=== PATIENT | female | born 1945 | race Caucasian/White ===

== ENCOUNTER 2020-05-13 07:57 | Outpatient (REF) | payer MEDICARE, OTHER, SELFPAY ==
[2020-05-13 11:49] LABS: Anion Gap 15 (12-20); Blood Urea Nitrogen 18 mg/dL (9-16); Calcium 8.8 mg/dL (8.4-10.2); Carbon Dioxide 28 mmol/L (22-29); Chloride 105 mmol/L (96-108); Estimated Glomerular Filt Rate 56; Glucose Random 113 mg/dL (60-115); Sodium 144 mmol/L (135-145)
== END 2020-05-13 07:58 | disposition home or self-care (01) ==
LOC: HO.HMGCLDS 07:57
PROVIDERS: PCP Internal Medicine; Visit Provider Internal Medicine
DX: I12.9 Hypertensive chronic kidney disease with stage 1 through stage 4 chronic kidney disease, or unspecified chronic kidney disease (principal); N18.9 Chronic kidney disease, unspecified
CPT/HCPCS: 80048

== ENCOUNTER 2020-06-16 09:34 | Outpatient (REF) | payer MEDICARE, OTHER, SELFPAY ==
[2020-06-16 11:47] LABS: Anion Gap 13 (12-20); Blood Urea Nitrogen 22 mg/dL (9-16); Calcium 9.1 mg/dL (8.4-10.2); Carbon Dioxide 30 mmol/L (22-29); Chloride 105 mmol/L (96-108); Estimated Glomerular Filt Rate 49; Glucose Random 150 mg/dL (60-115); Potassium 3.7 mmol/l (3.3-5.1); Sodium 144 mmol/L (135-145)
== END 2020-06-16 09:35 | disposition home or self-care (01) ==
LOC: HO.HMGCLDS 09:34
PROVIDERS: PCP Internal Medicine; Visit Provider Internal Medicine
DX: I10 Essential (primary) hypertension (principal)
CPT/HCPCS: 80048

== ENCOUNTER 2020-08-27 11:10 | Outpatient (REF) | payer MEDICARE, OTHER, SELFPAY ==
[2020-08-27 13:42] LABS: MANUAL DIFF FLAG NO
[2020-08-27 13:51] LABS: Basophils Absolute Auto 0.1 X10*3/uL (0.0-0.2); Eosinophils Absolute Auto 0.4 X10*3/uL (0.0-0.4); Eosinophils Percent Auto 4.5 % (0-4); Hematocrit 41.7 % (37-47); Hemoglobin 13.9 g/dl (12.0-16.0); Imm Gran Abs Auto 0.03 X10*3/uL (0.00-0.03); Imm Gran Pct Auto 0.4 % (0.0-0.4); Lymphocytes Absolute Auto 2.3 X10*3/uL (1.2-4.9); Mean Corpuscular HGB Conc 33.3 g/dl (31.0-35.0); Mean Corpuscular Hemoglobin 29.5 pg (27.0-33.0); Mean Corpuscular Volume 88.5 fL (80-98); Mean Platelet Volume 10.6 fL (9.4-12.3); Monocytes Absolute Auto 0.6 X10*3/uL (0.1-1.2); Monocytes Percent Auto 7.6 % (2-11); Neutrophils Absolute Auto 4.6 X10*3/uL (2.0-8.3); Neutrophils Percent Auto 57.5 % (45-73); Platelet Count 226 X10*3/uL (160-400); Red Blood Count 4.71 X10*6/uL (4.20-5.50); Red Cell Distribution Width 13.3 % (11.0-16.0)
[2020-08-27 13:58] LABS: Estimated Average Glucose 131 mg/dL; Hemoglobin A1c % 6.2 %
[2020-08-27 14:25] LABS: Alanine Aminotransferase 26 U/L (0-31); Albumin Level 4.3 g/dL (3.5-5.0); Alkaline Phosphatase 111 U/L (39-117); Anion Gap 15 (12-20); Aspartate Amino Transferase 23 U/L (5-31); Bilirubin Total 1.1 mg/dL (0.0-1.0); Blood Urea Nitrogen 15 mg/dL (9-16); Calcium 9.3 mg/dL (8.4-10.2); Carbon Dioxide 28 mmol/L (22-29); Chloride 104 mmol/L (96-108); Estimated Glomerular Filt Rate 48; Glucose Random 150 mg/dL (60-115); Potassium 3.1 mmol/L (3.3-5.1); Sodium 144 mmol/L (135-145); Total Protein 6.6 g/dL (6.5-8.0)
[2020-08-27 14:42] LABS: Creatinine Urine 33.74 mg/dL; Microalbum/Creatinine Ratio Ur 44.4 ug/mg cr
== END 2020-08-27 11:11 | disposition home or self-care (01) ==
LOC: HO.HMGCLDS 11:10
PROVIDERS: PCP Internal Medicine; Visit Provider Internal Medicine
DX: I12.9 Hypertensive chronic kidney disease with stage 1 through stage 4 chronic kidney disease, or unspecified chronic kidney disease (principal); N18.9 Chronic kidney disease, unspecified; R73.03 Prediabetes; E78.00 Pure hypercholesterolemia, unspecified
CPT/HCPCS: 36415; 80053; 82043; 83036; 85025

== ENCOUNTER 2020-09-27 13:03 | Outpatient (REF) | payer MEDICARE, OTHER, SELFPAY ==
[2020-09-27 15:00] LABS: Anion Gap 14 (12-20); Blood Urea Nitrogen 24 mg/dL (9-16); Calcium 9.3 mg/dL (8.4-10.2); Carbon Dioxide 26 mmol/L (22-29); Chloride 107 mmol/L (96-108); Estimated Glomerular Filt Rate 45; Glucose Random 128 mg/dL (60-115); Potassium 3.9 mmol/L (3.3-5.1); Sodium 143 mmol/L (135-145)
== END 2020-09-27 13:04 | disposition home or self-care (01) ==
LOC: HO.HMGCLDS 13:03
PROVIDERS: PCP Internal Medicine; Visit Provider Internal Medicine
DX: I12.9 Hypertensive chronic kidney disease with stage 1 through stage 4 chronic kidney disease, or unspecified chronic kidney disease (principal); N18.9 Chronic kidney disease, unspecified; E87.6 Hypokalemia
CPT/HCPCS: 36415; 80048

== ENCOUNTER 2021-03-17 07:20 | Outpatient (REF) | payer MEDICARE, OTHER, SELFPAY ==
--- NOTE | ~2021-03-17 | MM_ITS ---
EXAMINATION: BONE DENSITOMETRY CLINICAL INDICATION: Menopause. COMPARISON: Previous BD dated 03/25/2013 and baseline BD dated 08/28/2005. TECHNIQUE: Using a [employer] DXA System (software version: 13.1) manufactured by [employer], dual-energy x-ray absorptiometry was performed of the lumbar spine and left hip. The images are of good technical quality. Summary results are attached. FINDINGS: AP SPINE L1-L4: Current: BMD 1.019 g/cm2, Z-score -0.7, T-score -1.3, osteopenia, 12.3% increase from previous, 25.8% increase from baseline (<5% change is not significant). Prior: BMD 0.907 g/cm2. Baseline: BMD 0.810 g/cm2. LEFT FEMUR, NECK: Current: BMD 0.727 g/cm2, Z-score -1.0, T-score -2.2, osteopenia. Prior: BMD 0.796 g/cm2. Baseline: BMD 0.880 g/cm2. LEFT FEMUR, TOTAL: Current: BMD 0.787 g/cm2, Z-score -0.8, T-score -1.7, osteopenia, 7.7% decrease from previous, 13.0% decrease from baseline (<5% change is not significant). Prior: BMD 0.853 g/cm2. Baseline: BMD 0.905 g/cm2. IDENTIFIED RISK FACTORS: Osteoporosis, height loss, menopause. HISTORY OF FRACTURE: None listed. MEDICATIONS: Vitamin D. MM/XR DEXA axial skeleton IMPRESSION: 1. DIAGNOSIS: Osteopenia based on the lowest T-score value of -2.2 in the femoral neck applying World Health Organization criteria. 2. 10-YEAR FRACTURE RISK PREDICTION, FRAX: Major osteoporotic fracture (clinical spine, forearm, hip or shoulder) 13.5%. Hip fracture 3.7%. 3. Treatment Recommendations: NOF guidelines recommend consideration for treatment in postmenopausal women and men age 50 and older presenting with the following: -A hip or vertebral (clinical or morphometric) fracture. -T-score less than or equal to -2.5 at the femoral neck or spine after appropriate evaluation to exclude secondary causes. -Low bone mass at the hip or spine and a 10-year fracture probability by FRAX of greater than or equal to 3% for hip fracture or greater than or equal to 20% for major osteoporotic fracture based on the [place] adapted WHO algorithm. 4. Other Recommendations: All treatment decisions require clinical judgment and consideration of individual patient factors, including patient preferences, comorbidities, previous drug use, risk factors not captured in the FRAX model (e.g. frailty, falls, vitamin D deficiency, increased bone turnover, interval significant decline in bone density) and possible under or overestimation of fracture risk by FRAX. Additional medical evaluation for secondary cause of low bone mineral density may be appropriate. FUTURE SCAN RECOMMENDATION: People with diagnosed cases of osteoporosis or at high risk for fracture should have regular bone mineral density tests. For patients eligible for Medicare, routine testing is allowed once every 2 years. The testing frequency can be increased to one year for patients who have rapidly progressing disease, those who are receiving or discontinuing medical therapy to restore bone mass, or have additional risk factors.
--- NOTE | ~2021-03-17 | MM_ITS ---
EXAMINATION: MM SCREENING DIGITAL BREAST TOMOSYNTHESIS, BILATERAL CLINICAL INFORMATION: Left lumpectomy for breast cancer. Also history right LCIS. Due for yearly. COMPARISON: Mammography: 10/23/2013 TECHNIQUE: Digital breast tomosynthesis is performed in both the craniocaudal and mediolateral oblique views along with computer-aided detection (CAD). Synthesized 2D images are generated from the tomosynthesis. Additional exaggerated left CC view is provided. FINDINGS: The breasts are heterogeneously dense, which may obscure small masses (ACR BI-RADS breast composition Category c). Breast tissue composition borders on average fibroglandular. There are post therapy changes on the left with mild reduced breast size are in. There are scattered bilateral benign round and coarse and dermal calcifications. There is no significant mass or nonsurgical architectural changes. The axilla are unremarkable. MM/MM tomosynthesis screening BI IMPRESSION: No mammographic evidence of malignancy. Post therapy changes left breast. ASSESSMENT: BI-RADS 2: Benign RECOMMENDATION: Routine annual mammography screening. This patient's information was entered into a reminder system with a target due date for their next mammogram.
== END 2021-03-17 07:21 | disposition home or self-care (01) ==
LOC: HO.MAMMO 07:20
PROVIDERS: PCP Internal Medicine; Visit Provider Internal Medicine
DX: Z12.31 Encounter for screening mammogram for malignant neoplasm of breast (principal); Z13.820 Encounter for screening for osteoporosis; M85.80 Other specified disorders of bone density and structure, unspecified site; Z78.0 Asymptomatic menopausal state; Z79.899 Other long term (current) drug therapy
CPT/HCPCS: 77063; 77067; 77080

== ENCOUNTER 2021-04-15 06:55 | Outpatient (REF) | payer MEDICARE, OTHER, SELFPAY ==
[2021-04-15 12:27] LABS: MANUAL DIFF FLAG NO
[2021-04-15 12:34] LABS: Basophils Absolute Auto 0.1 X10*3/uL (0.0-0.2); Basophils Percent Auto 1.1 % (0-2); Eosinophils Absolute Auto 0.4 X10*3/uL (0.0-0.4); Eosinophils Percent Auto 5.5 % (0-4); Hematocrit 42.1 % (37-47); Hemoglobin 13.8 g/dl (12.0-16.0); Imm Gran Abs Auto 0.02 X10*3/uL (0.00-0.03); Imm Gran Pct Auto 0.2 % (0.0-0.4); Lymphocytes Absolute Auto 1.7 X10*3/uL (1.2-4.9); Lymphocytes Percent Auto 21.1 % (20-40); Mean Corpuscular HGB Conc 32.8 g/dl (31.0-35.0); Mean Corpuscular Volume 88.4 fL (80-98); Mean Platelet Volume 10.3 fL (9.4-12.3); Monocytes Absolute Auto 0.5 X10*3/uL (0.1-1.2); Monocytes Percent Auto 6.2 % (2-11); Neutrophils Absolute Auto 5.3 X10*3/uL (2.0-8.3); Neutrophils Percent Auto 65.9 % (45-73); Platelet Count 225 X10*3/uL (160-400); Red Blood Count 4.76 X10*6/uL (4.20-5.50); Red Cell Distribution Width 13.2 % (11.0-16.0); White Blood Count 8.1 X10*3/uL (4.8-10.8)
[2021-04-15 12:57] LABS: Alanine Aminotransferase 17 U/L (0-31); Alkaline Phosphatase 117 U/L (39-117); Anion Gap 13 (12-20); Aspartate Amino Transferase 15 U/L (5-31); Blood Urea Nitrogen 15 mg/dL (9-16); Calcium 9.3 mg/dL (8.4-10.2); Carbon Dioxide 26 mmol/L (22-29); Chloride 109 mmol/L (96-108); Cholesterol 167 mg/dL; Estimated Glomerular Filt Rate 55; Glucose Fasting 127 mg/dL (60-99); HDL Cholesterol 41 mg/dL; LDL Cholesterol Calculated 92 mg/dl; Sodium 144 mmol/L (135-145); Total Protein 6.4 g/dL (6.5-8.0); Triglycerides 172 mg/dL
[2021-04-15 13:23] LABS: Vitamin D 25-OH Total 35.7 ng/mL (>30)
[2021-04-15 13:25] LABS: Microalbum/Creatinine Ratio Ur 17.1 ug/mg cr
[2021-04-15 14:06] LABS: Estimated Average Glucose 126 mg/dL; Hemoglobin A1C 151.3327 umol/L
== END 2021-04-15 06:56 | disposition home or self-care (01) ==
LOC: HO.HMGCLDS 06:55
PROVIDERS: PCP Internal Medicine; Visit Provider Internal Medicine
DX: I12.9 Hypertensive chronic kidney disease with stage 1 through stage 4 chronic kidney disease, or unspecified chronic kidney disease (principal); N18.9 Chronic kidney disease, unspecified; R73.03 Prediabetes; E78.00 Pure hypercholesterolemia, unspecified; E55.9 Vitamin D deficiency, unspecified
CPT/HCPCS: 36415; 80053; 80061; 82043; 82306; 83036; 85025

== ENCOUNTER 2021-11-01 08:57 | Outpatient (REF) | payer MEDICARE, OTHER, SELFPAY ==
[2021-11-01 11:21] LABS: MANUAL DIFF FLAG NO
[2021-11-01 11:51] LABS: Estimated Average Glucose 134 mg/dL; Hemoglobin A1c % 6.3 %
[2021-11-01 11:53] LABS: Basophils Absolute Auto 0.1 X10*3/uL (0.0-0.2); Eosinophils Absolute Auto 0.4 X10*3/uL (0.0-0.4); Eosinophils Percent Auto 5.6 % (0-4); Hematocrit 42.7 % (37.0-47.0); Imm Gran Abs Auto 0.02 X10*3/uL (0.00-0.03); Imm Gran Pct Auto 0.3 % (0.0-0.4); Lymphocytes Absolute Auto 1.9 X10*3/uL (1.2-4.9); Lymphocytes Percent Auto 25.7 % (20-40); Mean Corpuscular HGB Conc 32.8 g/dl (31.0-35.0); Mean Corpuscular Hemoglobin 29.1 pg (27.0-33.0); Mean Corpuscular Volume 88.8 fL (80.0-98.0); Mean Platelet Volume 10.2 fL (9.4-12.3); Monocytes Absolute Auto 0.6 X10*3/uL (0.1-1.2); Neutrophils Absolute Auto 4.4 x10*3/uL (2.0-8.3); Neutrophils Percent Auto 59.4 % (45-73); Platelet Count 226 X10*3/uL (160-400); Red Blood Count 4.81 X10*6/uL (4.20-5.50); Red Cell Distribution Width 13.2 % (11.0-16.0); White Blood Count 7.4 X10*3/uL (4.8-10.8)
[2021-11-01 12:09] LABS: Anion Gap 14 (12-20); Blood Urea Nitrogen 17 mg/dL (9-16); Calcium 9.6 mg/dL (8.4-10.2); Carbon Dioxide 27 mmol/L (22-29); Chloride 106 mmol/L (96-108); Estimated Glomerular Filt Rate 57; Glucose Random 109 mg/dL (60-115); Potassium 4.1 mmol/L (3.3-5.1); Sodium 143 mmol/L (135-145)
== END 2021-11-01 08:58 | disposition home or self-care (01) ==
LOC: HO.HMGCLDS 08:57
PROVIDERS: Visit Provider Internal Medicine
DX: I12.9 Hypertensive chronic kidney disease with stage 1 through stage 4 chronic kidney disease, or unspecified chronic kidney disease (principal); N18.9 Chronic kidney disease, unspecified; R73.03 Prediabetes
CPT/HCPCS: 36415; 80048; 83036; 85025

== ENCOUNTER 2022-02-22 06:26 | Outpatient (REF) | payer MEDICARE, OTHER, SELFPAY ==
[2022-02-22 11:15] LABS: MANUAL DIFF FLAG NO
[2022-02-22 11:28] LABS: Basophils Absolute Auto 0.1 X10*3/uL (0.0-0.2); Basophils Percent Auto 0.9 % (0-2); Eosinophils Absolute Auto 0.2 X10*3/uL (0.0-0.4); Eosinophils Percent Auto 2.8 % (0-4); Hematocrit 42.8 % (37.0-47.0); Hemoglobin 14.1 g/dl (12.0-16.0); Imm Gran Abs Auto 0.03 X10*3/uL (0.00-0.03); Imm Gran Pct Auto 0.4 % (0.0-0.4); Lymphocytes Absolute Auto 1.6 X10*3/uL (1.2-4.9); Lymphocytes Percent Auto 20.5 % (20-40); Mean Corpuscular HGB Conc 32.9 g/dl (31.0-35.0); Mean Corpuscular Hemoglobin 29.6 pg (27.0-33.0); Mean Corpuscular Volume 89.9 fL (80.0-98.0); Mean Platelet Volume 9.8 fL (9.4-12.3); Monocytes Absolute Auto 0.5 X10*3/uL (0.1-1.2); Monocytes Percent Auto 6.5 % (2-11); Neutrophils Absolute Auto 5.4 x10*3/uL (2.0-8.3); Neutrophils Percent Auto 68.9 % (45-73); Platelet Count 188 X10*3/uL (160-400); Red Blood Count 4.76 X10*6/uL (4.20-5.50); Red Cell Distribution Width 13.9 % (11.0-16.0); White Blood Count 7.8 X10*3/uL (4.8-10.8)
[2022-02-22 11:41] LABS: Alanine Aminotransferase 20 U/L (0-31); Albumin Level 3.8 g/dL (3.5-5.0); Alkaline Phosphatase 86 U/L (39-117); Anion Gap 14 (12-20); Aspartate Amino Transferase 14 U/L (5-31); Bilirubin Total 1.3 mg/dL (0.0-1.0); Blood Urea Nitrogen 22 mg/dL (9-16); Carbon Dioxide 26 mmol/L (22-29); Chloride 108 mmol/L (96-108); Cholesterol 189 mg/dL; Estimated Glomerular Filt Rate 53; Glucose Fasting 114 mg/dL (60-99); HDL Cholesterol 52 mg/dL; LDL Cholesterol Calculated 113 mg/dl; Potassium 3.9 mmol/L (3.3-5.1); Sodium 144 mmol/L (135-145); Triglycerides 123 mg/dL
[2022-02-22 11:44] LABS: Estimated Average Glucose 134 mg/dL; Hemoglobin A1c % 6.3 %
[2022-02-22 12:17] LABS: Creatinine Urine 131.89 mg/dL; Microalbum/Creatinine Ratio Ur 11.3 ug/mg cr
== END 2022-02-22 06:27 | disposition home or self-care (01) ==
LOC: HO.HMGCLDS 06:26
PROVIDERS: PCP Internal Medicine; Visit Provider Internal Medicine
DX: I12.9 Hypertensive chronic kidney disease with stage 1 through stage 4 chronic kidney disease, or unspecified chronic kidney disease (principal); N18.9 Chronic kidney disease, unspecified; E78.00 Pure hypercholesterolemia, unspecified; R73.03 Prediabetes
CPT/HCPCS: 36415; 80053; 80061; 82043; 83036; 85025

== ENCOUNTER 2022-03-30 07:13 | Outpatient (REF) | payer MEDICARE, OTHER, SELFPAY ==
--- NOTE | ~2022-03-30 | MM_ITS ---
EXAMINATION: MM SCREENING DIGITAL BREAST TOMOSYNTHESIS, BILATERAL CLINICAL INFORMATION: Due for yearly. Screening. Asymptomatic. Left breast lobular cancer status post lumpectomy, 2010. Also prior right lumpectomy, LCIS. COMPARISON: Mammography: 04/04/2021, 10/23/2013, 10/18/2012 TECHNIQUE: Digital breast tomosynthesis is performed in both the craniocaudal and mediolateral oblique views along with computer-aided detection (CAD). Synthesized 2D images are generated from the tomosynthesis. FINDINGS: The breasts are heterogeneously dense, which may obscure small masses (ACR BI-RADS breast composition Category c). There are no significant masses, abnormal calcifications, or other abnormalities. Breast tissue composition borders on average fibroglandular. There is no developing density or interval mass or architectural abnormality. Again, there are postsurgical changes on the left with mild reduced breast size and stable scarring. Scattered bilateral benign round and rim calcifications are present. No significant changes. MM/MM tomosynthesis screening BI IMPRESSION: No mammographic evidence of malignancy. ASSESSMENT: BI-RADS 2: Benign RECOMMENDATION: Routine annual mammography screening. This patient's information was entered into a reminder system with a target due date for their next mammogram.
== END 2022-03-30 07:14 | disposition home or self-care (01) ==
LOC: HO.MAMMO 07:13
PROVIDERS: PCP Internal Medicine; Visit Provider Internal Medicine
DX: Z12.31 Encounter for screening mammogram for malignant neoplasm of breast (principal)
CPT/HCPCS: 77063; 77067

== ENCOUNTER 2022-08-29 09:20 | Outpatient (REF) | payer MEDICARE, OTHER, SELFPAY ==
[2022-08-29 11:54] LABS: Anion Gap 13 (12-20); Blood Urea Nitrogen 17 mg/dL (9-16); Calcium 9.6 mg/dL (8.4-10.2); Carbon Dioxide 25 mmol/L (22-29); Chloride 108 mmol/L (96-108); Estimated Glomerular Filt Rate 50; Glucose Random 111 mg/dL (60-115); Iron 125 mcg/dL (30-160); Percent Iron Saturation 48 % (15-50); Potassium 3.4 mmol/L (3.3-5.1); Sodium 143 mmol/L (135-145); Total Iron Binding Capacity 261 mcg/dL (228-428); Unsaturated Iron Binding 136 ug/dL
[2022-08-29 12:08] LABS: Ferritin 116 ng/mL (10-250)
[2022-08-29 16:49] LABS: Estimated Average Glucose 134 mg/dL; Hemoglobin A1c % 6.3 %
== END 2022-08-29 09:21 | disposition home or self-care (01) ==
LOC: HO.HMGCLDS 09:20
PROVIDERS: PCP Internal Medicine; Visit Provider Internal Medicine
DX: R73.03 Prediabetes (principal); I10 Essential (primary) hypertension; E83.119 Hemochromatosis, unspecified
CPT/HCPCS: 36415; 80048; 82728; 83036; 83540

== ENCOUNTER 2023-03-05 08:07 | Outpatient (AMB) | payer MEDICARE, OTHER, SELFPAY ==
--- NOTE | 2023-03-05 08:10 | MHC.OFFWIV ---
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) Intake Note: pt is here for c/o cough 3x weeks Patient Tobacco Use Status: Never used Tobacco Allergies Penicillins [PENICILLINS] Allergy (Intermediate, Verified 03/05/23 08:31) RASH codeine [CODEINE] Allergy (Unknown, Verified 03/05/23 08:31) VOMITING, nausea/vomiting penicillin V Allergy (Unknown, Verified 03/05/23 08:31) rash Bactrim Allergy (Unknown, Uncoded 03/05/23 08:31) severe vomiting, chills cipro Allergy (Unknown, Uncoded 03/05/23 08:31) severe vomiting, chills tetracycline Allergy (Unknown, Uncoded 03/05/23 08:31) rash Medication List - Last Reconciled 03/05/23 by Bharathi Camarena MD diltiazem HCl 300 mg PO DAILY escitalopram oxalate 5 mg PO DAILY furosemide 40 mg PO DAILY losartan 100 mg PO DAILY potassium chloride ER 10 mEq PO DAILY pravastatin 40 mg PO DAILY 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 Patient is complaining of productive cough for the past 3 weeks. Associated with mild shortness of breath. Lives alone and able to function. No fevers or chills. Has not tested for COVID. Primary care provider put her on prednisone and she took 6 doses with no relief. [facility] Social History Patient Tobacco Use Status: Never used Tobacco Physical Exam Vital Signs: Last Vital Signs Temp 98.0 F 03/05/23 08:14 Pulse 78 03/05/23 08:14 BP 130/78 03/05/23 08:14 Pulse Ox 98 03/05/23 08:14 Oxygen Delivery Method Room Air 03/05/23 08:14 BMI result Body Mass Index 36.0 Const General: cooperative and healthy appearing Nutritional Appearance: well nourished Orientation/consciousness: patient oriented x3 Limitations: no limitations HEENT Head: Yes normal to inspection Eyes General: appearance normal, both eyes and all related structures Neck Neck: Yes normal visual inspection Chest Chest palpation & inspection: normal palpation of entire chest wall Resp Effort & Inspection: normal respiratory effort Neuro General: patient oriented x3 Assessment & Plan Assessment & Plan (1) Acute bronchitis: Code(s): J20.9 - Acute bronchitis, unspecified Plan: Chest x-ray was personally reviewed by me. Right upper lobe, possible infiltrate. Will await the official reading. Prednisone for 3 days, antibiotic and inhalers ordered. If symptoms not better to follow-up here. Orders: Orders XR chest 2V Today J18.9 - Pneumonia, unspecified organism Coding Level of Care Code Est Pt Level 4 (97168) Diagnoses Acute bronchitis J20.9
[2023-03-05 08:14] VITALS: BP 130/78; PULSE 78; TEMP 36.7; O2SAT 98; BMI 36.0
== END 2023-03-05 09:02 | disposition home or self-care (01) ==
PROVIDERS: PCP Internal Medicine; Visit Provider Internal Medicine
DX: J20.9 Acute bronchitis, unspecified (principal)
CPT/HCPCS: 99214

== ENCOUNTER 2023-03-05 08:31 | Outpatient (REF) | payer MEDICARE, OTHER, SELFPAY ==
--- NOTE | ~2023-03-05 | XR_ITS ---
EXAMINATION: XR CHEST CLINICAL INFORMATION: Pneumonia. COMPARISON: Chest radiographs dated 10/24/2010. TECHNIQUE: 2 views of the chest were obtained. FINDINGS: A focal opacity is seen medially in the right apex. Mild biapical pleural thickening and scarring is seen. The heart and mediastinal structures are unremarkable. XR/XR chest 2V IMPRESSION: Focal opacity medially in the right apex is nonspecific, but was not seen previously. While this could represent infiltrate, pulmonary nodules/malignancy cannot be excluded. Further evaluation with a chest CT scan is recommended.
[2023-03-05 15:01] LABS: Influenza A PCR NEGATIVE (Negative); Influenza B PCR NEGATIVE (Negative); Resp Syncy Virus RNA Qual PCR NEGATIVE (Negative); SARS COV2 PCR INHOUSE NEGATIVE (Negative)
== END 2023-03-05 08:32 | disposition home or self-care (01) ==
LOC: HO.HMGCX 08:31
PROVIDERS: PCP Internal Medicine; Visit Provider Internal Medicine
DX: J18.9 Pneumonia, unspecified organism (principal); R43.9 Unspecified disturbances of smell and taste; Z20.822 Contact with and (suspected) exposure to COVID-19
CPT/HCPCS: 0241U; 71046

== ENCOUNTER 2023-03-05 10:15 | Outpatient (REF) | payer MEDICARE, OTHER, SELFPAY | END 2023-03-05 10:16 | disposition home or self-care (01) | LOC: HO.LAB 10:15 | PROVIDERS: Visit Provider Internal Medicine | DX: Z13.89 Encounter for screening for other disorder (principal) ==

== ENCOUNTER 2023-04-04 07:29 | Outpatient (REF) | payer MEDICARE, OTHER, SELFPAY ==
--- NOTE | ~2023-04-04 | MM_ITS ---
EXAMINATION: MM SCREENING DIGITAL BREAST TOMOSYNTHESIS, BILATERAL CLINICAL INFORMATION: Screening. Asymptomatic. The patient has a history of prior left breast cancer which was conservatively treated. COMPARISON: Mammography: This study is compared with prior exams dating back to 2013. TECHNIQUE: Digital breast tomosynthesis is performed in both the craniocaudal and mediolateral oblique views along with computer-aided detection (CAD). Synthesized 2D images are generated from the tomosynthesis. FINDINGS: The breasts are heterogeneously dense, which may obscure small masses (ACR BI-RADS breast composition Category c). There are no significant masses, abnormal calcifications, or other abnormalities. There are postsurgical changes in the upper outer quadrant of the left breast along with benign calcifications. There are no mammographic signs of malignancy the current time. MM/MM tomosynthesis screening BI IMPRESSION: No mammographic evidence of malignancy. ASSESSMENT: BI-RADS BI-RADS 2 - Benign Findings RECOMMENDATION: Routine annual mammography screening. 1 year F/U This examination should not preclude the clinical evaluation of a suspicious palpable abnormality. This patient's information was entered into a reminder system with a target due date for their next mammogram.
== END 2023-04-04 07:30 | disposition home or self-care (01) ==
LOC: HO.MAMMO 07:29
PROVIDERS: PCP Internal Medicine; Visit Provider Internal Medicine
DX: Z12.31 Encounter for screening mammogram for malignant neoplasm of breast (principal)
CPT/HCPCS: 77063; 77067

== ENCOUNTER → 2023-04-04 07:45 | Outpatient (BNV) | payer MEDICARE, OTHER, SELFPAY | PROVIDERS: PCP Internal Medicine; Visit Provider Radiology Diagnostic Radiology | DX: Z12.31 Encounter for screening mammogram for malignant neoplasm of breast (principal) | CPT/HCPCS: 77063; 77067 ==

== ENCOUNTER 2023-06-08 09:21 | Outpatient (AMB) | payer MEDICARE, OTHER, SELFPAY ==
[2023-06-08 09:26] VITALS: BP 132/80; PULSE 80; TEMP 36.7; O2SAT 97; BMI 36.0
--- NOTE | 2023-06-08 09:26 | AM.OFFWIN_ITS ---
Intake Vital Signs 06/08/23 09:26 Height 5 ft 4 in Weight 210 lb BMI 36.0 BP 132/80 Blood Pressure Location Rt brachial Position Sitting Pulse 80 Pulse Source Pulse Oximeter Temp 98.0 F Temp Source Temporal Artery Scan Pulse Oximetry (%) 97 Oxygen Delivery Method Room Air Intake Visit Reasons: EP ?Sinus infection Intake Note: pt is here for c/o sinus infection, watery eyes, ear discomfort. denies vision change Patient Tobacco Use Status: Never used Tobacco Allergies Penicillins [PENICILLINS] Allergy (Intermediate, Verified 06/08/23 09:58) RASH codeine [CODEINE] Allergy (Unknown, Verified 06/08/23 09:58) VOMITING, nausea/vomiting penicillin V Allergy (Unknown, Verified 06/08/23 09:58) rash Bactrim Allergy (Unknown, Uncoded 06/08/23 09:58) severe vomiting, chills cipro Allergy (Unknown, Uncoded 06/08/23 09:58) severe vomiting, chills tetracycline Allergy (Unknown, Uncoded 06/08/23 09:58) rash Medication List - Last Reconciled 06/08/23 by Bharathi Camarena MD albuterol sulfate 90 mcg/actuation (Ventolin HFA) 1 inh inhalation QID PRN diltiazem HCl 300 mg PO DAILY escitalopram oxalate 5 mg PO DAILY furosemide 40 mg PO DAILY losartan 100 mg PO DAILY potassium chloride ER 10 mEq PO DAILY pravastatin 40 mg PO DAILY Do you need a note to return to daycare/school/sports/work: Yes HPI EP ?Sinus infection HPI Details 78 yr old female presents to the office for a sick visit. Reporting sx of congestion, headaches and sinus pain. In addition, patient has crusts in both eyes. Also, she never followed up for a rpt x ray after her pneumonia in February [facility] Patient Tobacco Use Status: Never used Tobacco Physical Exam Vital Signs: Last Vital Signs Temp 98.0 F 06/08/23 09:26 Pulse 80 06/08/23 09:26 BP 132/80 06/08/23 09:26 Pulse Ox 97 06/08/23 09:26 Oxygen Delivery Method Room Air 06/08/23 09:26 BMI result Body Mass Index 36.0 Const General: cooperative and healthy appearing Nutritional Appearance: well nourished Orientation/consciousness: patient oriented x3 Limitations: no limitations HEENT Head: Yes normal to inspection Eyes Other: Bulbar conjunctiva is congested. Cornea is clear. No digital tenderness General: appearance normal, both eyes and all related structures Neck Neck: Yes normal visual inspection Chest Chest palpation & inspection: normal palpation of entire chest wall Resp Effort & Inspection: normal respiratory effort Neuro General: patient oriented x3 Assessment & Plan Assessment & Plan (1) Upper respiratory tract infection: Code(s): J06.9 - Acute upper respiratory infection, unspecified Plan: Zpak and Emycin oph ointment ordered. (2) Mass of upper lobe of right lung: Code(s): R91.8 - Other nonspecific abnormal finding of lung field Plan: X rays show that the right upper lobe infiltrate is still present. Patient was again advised to follow up with her PCP for a CT scan of the chest. Orders: Orders XR chest 2V Today J18.9 - Pneumonia, unspecified organism Coding Level of Care Code Est Pt Level 4 (13653) Diagnoses Upper respiratory tract infection J06.9 Mass of upper lobe of right lung R91.8
== END 2023-06-08 10:08 | disposition home or self-care (01) ==
PROVIDERS: PCP Family Medicine; Visit Provider Internal Medicine
DX: J06.9 Acute upper respiratory infection, unspecified (principal); R91.8 Other nonspecific abnormal finding of lung field
CPT/HCPCS: 99214

== ENCOUNTER 2023-06-08 09:49 | Outpatient (REF) | payer MEDICARE, OTHER, SELFPAY ==
--- NOTE | ~2023-06-08 | XR_ITS ---
EXAMINATION: XR CHEST CLINICAL INFORMATION: Pneumonia COMPARISON: Chest x-ray on 03/05/2023 TECHNIQUE: 2 views of the chest were obtained. FINDINGS: vascularity. LUNGS: A persistent semilunar shaped asymmetric soft tissue density is seen along the medial superior right apical border measuring 3.0 cm in vertical height, 2.1 cm in width. No pneumothorax is seen. BONES: Bony skeleton is intact. XR/XR chest 2V IMPRESSION: Persistent asymmetric soft tissue density in medial superior right lung apex, not evident on earlier chest x-ray on 10/24/2010. Even though findings could represent persistent airspace disease, persistent for more than 3 months raises concern for right lung mass lesion. Further evaluation with preferably contrast-enhanced CT scan of chest is recommended.
== END 2023-06-08 09:50 | disposition home or self-care (01) ==
LOC: HO.HMGCX 09:49
PROVIDERS: PCP Family Medicine; Visit Provider Internal Medicine
DX: J18.9 Pneumonia, unspecified organism (principal)
CPT/HCPCS: 71046

== ENCOUNTER 2023-07-25 08:13 | Outpatient (REF) | payer MEDICARE, OTHER, SELFPAY ==
--- NOTE | ~2023-07-25 | CT_ITS ---
EXAMINATION: CT CHEST WITH CONTRAST CLINICAL INFORMATION: Right upper lobe lung mass. COMPARISON: Chest radiograph 06/08/2023: Persistent asymmetric soft tissue density in medial superior right lung apex, not evident on earlier chest x-ray on 10/24/2010. Even though findings could represent persistent airspace disease, persistent for more than 3 months raises concern for right lung mass lesion. Further evaluation with preferably contrast-enhanced CT scan of chest is recommended. TECHNIQUE: Multidetector volumetric CT imaging of the chest was obtained after the administration of 65 mL of Omnipaque 350 intravenous contrast without immediate adverse reactions. Axial MIP volume rendering provided. Sagittal and coronal reformatted images were obtained. This CT examination was performed using dose optimization techniques as appropriate, variously including the following: *Automated exposure control *Adjustment of mA and/or kV according to patient size (this includes techniques or standardized protocols for targeted exams where dose is matched to indication/reason for exam; i.e. extremities or head) *Use of iterative reconstruction technique DLP: 145 mGy-cm FINDINGS: [employer]: Right paratracheal fullness again noted. LUNGS: The right paratracheal fullness is secondary to vascular ectasia and tortuosity of the brachiocephalic and right subclavian artery. There is a 3 mm left upper lobe pulmonary nodule (5:65). There is a 3 mm right lower lobe pulmonary nodule (5:98). A calcified left lower lobe granuloma is seen (5:100). MEDIASTINUM: Thyroid is enlarged with multiple nodules, the largest of which measures about 1.6 cm on the right. Heart size normal. Mild coronary calcium is seen. No mediastinal or hilar lymphadenopathy. Tortuous ectatic brachiocephalic and right subclavian artery accounting for paratracheal opacity on the prior chest radiograph as described above. Marked calcific atherosclerotic change is present in the descending thoracic aorta with extensive slightly eccentric noncalcified plaque PLEURA: There is no pleural effusion. No pleural mass or thickening. AXILLA: No lymphadenopathy. UPPER ABDOMEN: Splenomegaly is suspected although the entire spleen is not included on the exam. OSSEOUS STRUCTURES: Marked degenerative changes are present in the mid thoracic spine. There is a compression fracture involving the L1 vertebral body. CT/CT chest w IV con IMPRESSION: 1. The right paratracheal fullness is secondary to vascular ectasia and tortuosity of the brachiocephalic and right subclavian artery. A pathologic lung mass is not seen. 2. Small benign-appearing pulmonary nodules as described above. No followup should be necessary. 3. Enlarged thyroid with multiple nodules. Dedicated thyroid ultrasound recommended for further evaluation. 4. L1 compression fracture. 5. Possible splenomegaly. 6. Other incidental findings as described above. According to the UPDATED 2017 Fleischner Society recommendations, the advised follow-up imaging for nodules <6mm in the upper lobes is not necessarily required in low-risk patients. In high-risk patients with a nodule in the upper lobe and/or demonstrating suspicious morphology, an optional CT followup at 12 months may be obtained. If stable at 12 months, no further followup is recommended.
[2023-07-25] MEDS: iohexoL 350 MG/ML 100 ML INFUS..BTL IV (09:22)
[2023-07-26 07:10] LABS: Creatinine POC 0.9 mg/dL (0.5-1.4); GFR POC > 60
== END 2023-07-25 08:14 | disposition home or self-care (01) ==
LOC: HO.CT 08:13
PROVIDERS: PCP Family Medicine; Visit Provider Family Medicine
DX: R93.89 Abnormal findings on diagnostic imaging of other specified body structures (principal)
CPT/HCPCS: 71260; 82565; Q9967

== ENCOUNTER 2023-09-24 13:08 | Outpatient (REF) | payer MEDICARE, OTHER, SELFPAY ==
--- NOTE | ~2023-09-24 | US_ITS ---
EXAMINATION: US THYROID CLINICAL INFORMATION: Thyroid nodule. COMPARISON: CT chest with contrast 07/25/2023. TECHNIQUE: Linear transducer palomo-scale and color Doppler examination with attention to the region of the thyroid. FINDINGS: SIZE: Measurements of the thyroid lobes and nodules are given in sagittal, anteroposterior and transverse dimensions respectively. Right Thyroid Lobe: 5.7 x 2.6 x 2.3 cm, volume 18 mL. Parenchyma: The gland echotexture is homogeneous. Thyroid vascularity is normal. Left Thyroid Lobe: 5.2 x 2.2 x 2.1 cm, volume 12.1 mL. Parenchyma: The gland echotexture is homogeneous. Thyroid vascularity is normal. Isthmus: 0.41 cm in maximum AP dimension. Estimated total number of nodules greater than or equal to 1 cm: 3. 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 Location: Right mid. Size: 1.7 x 1.9 x 1 cm, volume 1.7 mL. Nodule characteristics: Composition: Mixed cystic and solid (1). Echogenicity: Cannot be determined (1). Shape: Not taller than wide (0). Margins: Smooth (0). Echogenic Foci: None (0). ACR TI-RADS total points: 2 ACR TI-RADS category: 2 2. Location: Right anterior inferior. Size: 0.9 x 1.0 x 0.85 cm, volume 0.4 mL. Nodule characteristics: Composition: Cystic(0). ACR TI-RADS total points: 0 ACR TI-RADS category: 1 3. Location: Left mid. Size: 1.8 x 1.1 x 1.4 cm, volume 1.4 mL. Nodule characteristics: Composition: Solid (2). Echogenicity: Isoechoic (1). Shape: Not taller than wide (0). Margins: Smooth (0). Echogenic Foci: None (0). ACR TI-RADS total points: 3 ACR TI-RADS category: 3 4. Location: Left medial. Size: 0.6 x 0.7 x 0.43 cm, volume 0.1 mL. Nodule characteristics: Composition: Cystic(0). ACR TI-RADS total points: 0 ACR TI-RADS category: 1 NODES: No lymphadenopathy is seen in the tissue surrounding the thyroid gland. US/US thyroid IMPRESSION: Enlarged multinodular goiter. None of the thyroid nodules meet criteria for biopsy. A 1.8 cm TR3 nodule meets criteria for follow-up in one year. ACR TI-RADS RECOMMENDATION REFERENCE: Ultrasound-guided fine-needle aspiration, followup ultrasound, no further follow up. * TR1 (0 point) and TR2 (2 points): No FNA or follow up. * TR3 (3 points): FNA if more than or equal to 2.5 cm in maximum dimension, followup ultrasound in 1, 3 and 5 years if 1.5 to 2.4 cm in maximum dimension. * TR4 (4-6 points): FNA if more than or equal to 1.5 cm in maximum dimension, followup ultrasound in 1, 2, 3 and 5 years if 1 to 1.4 cm in maximum dimension. * TR5 (more than or equal to 7 points): FNA if more than or equal to 1 cm in maximum dimension, followup ultrasound every year for 5 years if 0.5 to 0.9 cm in maximum dimension. * TR3, TR4 or TR5 nodules that are below the size threshold for followup receive no follow up.
== END 2023-09-24 13:09 | disposition home or self-care (01) ==
LOC: HO.US 13:08
PROVIDERS: PCP Family Medicine; Visit Provider Family Medicine
DX: E04.2 Nontoxic multinodular goiter (principal)
CPT/HCPCS: 76536

== ENCOUNTER 2023-11-14 08:03 | Outpatient (AMB) | payer MEDICARE, OTHER, SELFPAY ==
[2023-11-14 08:05] VITALS: BP 122/68; PULSE 68; TEMP 36.6; O2SAT 97; BMI 36.0
--- NOTE | 2023-11-14 08:05 | AM.OFFWIN_ITS ---
Intake Vital Signs 11/14/23 08:05 Height 5 ft 4 in Weight 210 lb BMI 36.0 BP 122/68 Blood Pressure Location Rt brachial Position Sitting Pulse 68 Pulse Source Pulse Oximeter Temp 97.9 F Temp Source Oral Pulse Oximetry (%) 97 Intake Visit Reasons: EP Cough, tightness chest Intake Note: pt is here for cough, chest tightness, ongoing since sunday Patient Tobacco Use Status: Never used Tobacco Allergies Penicillins [PENICILLINS] Allergy (Intermediate, Verified 11/14/23 08:19) RASH codeine [CODEINE] Allergy (Unknown, Verified 11/14/23 08:19) VOMITING, nausea/vomiting penicillin V Allergy (Unknown, Verified 11/14/23 08:19) rash Bactrim Allergy (Unknown, Uncoded 06/08/23 09:58) severe vomiting, chills cipro Allergy (Unknown, Uncoded 06/08/23 09:58) severe vomiting, chills tetracycline Allergy (Unknown, Uncoded 06/08/23 09:58) rash Do you need a note to return to daycare/school/sports/work: No HPI EP Cough, tightness chest HPI Details This is a 78 year old female patient who presents to the [place] clinic today with HPI Comments History of Present Illness Details 78 y/o female patient who presents to [facility] in clinic with c/o cough, wheezing and SOB. Reports symptoms started last Sunday. Denies fevers, chills, nausea or vomiting. PFSH Social History Patient Tobacco Use Status: Never used Tobacco Review of Systems Const All systems reviewed & are unremarkable except as noted in HPI and below Physical Exam Vital Signs: Last Vital Signs Temp 97.9 F 11/14/23 08:05 Pulse 68 11/14/23 08:05 BP 122/68 11/14/23 08:05 Pulse Ox 97 11/14/23 08:05 BMI result Body Mass Index 36.0 Const General: comfortable and no acute distress Nutritional Appearance: overweight Orientation/consciousness: patient oriented x3 HEENT Head: Yes normocephalic Ears: external ears normal and TM's normal bilaterally General nose exam: Normal nasal mucous membranes and turbinates present and Nasal discharge present Face and sinus: Yes sinuses nontender Mouth: moist mucous membranes Throat: Yes posterior oropharynx normal Resp Effort & Inspection: normal respiratory effort, able to speak in complete sentences, no audible wheezes and Actively coughing Auscultation: no crackles, no rales, rhonchi and wheezes Cardio Rate: regular rate Rhythm: regular rhythm Neuro General: patient oriented x3 Assessment & Plan Assessment & Plan (1) Acute bronchitis: Code(s): J20.9 - Acute bronchitis, unspecified Qualifiers: Bronchitis organism: unspecified organism Qualified Code(s): J20.9 - Acute bronchitis, unspecified Plan: - Rest and hydrate well - Chest Xray - Take medications as directed - Acetaminophen for pain relief - OTC cough remedies. (2) Cough in adult: Code(s): R05.9 - Cough, unspecified Plan: - Rest and hydrate well - Chest Xray - Take medications as directed - Acetaminophen for pain relief - OTC cough remedies. Orders: Orders SARS-CoV2/FLU/RSV Today J20.9 - Acute bronchitis, unspecified, R05.9 - Cough, unspecified XR chest 2V Today J20.9 - Acute bronchitis, unspecified, R05.9 - Cough, unspecified Medications: New azithromycin 500 mg PO DAILY 3 tabs 0RF 3 days J20.9 - Acute bronchitis, unspecified, R05.9 - Cough, unspecified doxycycline hyclate 100 mg PO BID 20 caps 0RF 10 days J20.9 - Acute bronchitis, unspecified, R05.9 - Cough, unspecified prednisone 50 mg PO DAILY 5 tabs 0RF 5 days J20.9 - Acute bronchitis, unspecified, R05.9 - Cough, unspecified Coding Level of Care Code Est Pt Level 3 (92417) Diagnoses Acute bronchitis, unspecified organism J20.9 Bronchitis organism: unspecified organism Cough in adult R05.9 Time Spent (min) 15
== END 2023-11-14 09:02 | disposition home or self-care (01) ==
PROVIDERS: PCP Family Medicine; Visit Provider Nurse Practitioner Family
DX: J20.9 Acute bronchitis, unspecified (principal); R05.9 Cough, unspecified
CPT/HCPCS: 99213

== ENCOUNTER 2023-11-14 08:57 | Outpatient (REF) | payer MEDICARE, OTHER, SELFPAY | END 2023-11-14 08:58 | disposition home or self-care (01) | LOC: HO.LAB 08:57 | PROVIDERS: Visit Provider Nurse Practitioner Family | DX: Z13.89 Encounter for screening for other disorder (principal) ==

== ENCOUNTER 2023-11-14 09:50 | Outpatient (REF) | payer MEDICARE, OTHER, SELFPAY ==
--- NOTE | ~2023-11-14 | XR_ITS ---
EXAMINATION: XR CHEST CLINICAL INFORMATION: Acute bronchitis COMPARISON: CT chest 07/25/2023 TECHNIQUE: 2 views of the chest were obtained. FINDINGS: Lungs clear. No pleural effusions. Heart size borderline with normal caliber pulmonary vessels. No pleural effusions. Thoracic spine kyphotic. XR/XR chest 2V IMPRESSION: No active disease.
[2023-11-14 11:06] LABS: Influenza A PCR NEGATIVE (Negative); Influenza B PCR NEGATIVE (Negative); Resp Syncy Virus RNA Qual PCR NEGATIVE (Negative); SARS COV2 PCR INHOUSE NEGATIVE (Negative)
== END 2023-11-14 09:51 | disposition home or self-care (01) ==
LOC: HO.HMGCX 09:50
PROVIDERS: PCP Family Medicine; Visit Provider Nurse Practitioner Family
DX: J20.9 Acute bronchitis, unspecified (principal); R05.9 Cough, unspecified
CPT/HCPCS: 0241U; 71046

== ENCOUNTER 2024-04-10 07:34 | Outpatient (REF) | payer MEDICARE, OTHER, SELFPAY ==
--- NOTE | ~2024-04-10 | MM_ITS ---
EXAMINATION: MM SCREENING DIGITAL BREAST TOMOSYNTHESIS, BILATERAL CLINICAL INFORMATION: Screening. Asymptomatic. COMPARISON: Mammography: Comparison is made with available priors TECHNIQUE: Digital breast mammography with tomosynthesis is performed in both the craniocaudal and mediolateral oblique views along with computer-aided detection (CAD). FINDINGS: The breasts are heterogeneously dense, which may obscure small masses (ACR BI-RADS breast composition Category c). Status post left lumpectomy changes are stable. Right post surgical changes are stable. There are no significant masses, abnormal calcifications, or other abnormalities. MM/MM tomosynthesis screening BI IMPRESSION: No mammographic evidence of malignancy. ASSESSMENT: BI-RADS BI-RADS 2 - Benign Findings RECOMMENDATION: Routine annual mammography screening. 1 year F/U This examination should not preclude the clinical evaluation of a suspicious palpable abnormality. This patient's information was entered into a reminder system with a target due date for their next mammogram. Electronically signed by: Nolvia Phan DO 04/14/2024 02:57 PM EDT
== END 2024-04-10 07:35 | disposition home or self-care (01) ==
LOC: HO.MAMMO 07:34
PROVIDERS: PCP Family Medicine; Visit Provider Family Medicine
DX: Z12.31 Encounter for screening mammogram for malignant neoplasm of breast (principal)
CPT/HCPCS: 77063; 77067

== ENCOUNTER → 2024-04-10 07:45 | Outpatient (BNV) | payer MEDICARE, OTHER, SELFPAY | PROVIDERS: PCP Family Medicine; Visit Provider Internal Medicine | DX: Z12.31 Encounter for screening mammogram for malignant neoplasm of breast (principal) | CPT/HCPCS: 77063; 77067 ==

== ENCOUNTER 2024-09-11 08:23 | Outpatient (AMB) | payer MEDICARE, OTHER, SELFPAY ==
--- NOTE | 2024-09-11 09:12 | AM.OFFWIN_ITS ---
Intake Vital Signs 09/11/24 09:15 Weight 213 lb BP 138/80 Blood Pressure Location Rt brachial Position Sitting Pulse 85 Pulse Source Pulse Oximeter Temp 98.3 F Temp Source Oral Pulse Oximetry (%) 99 Oxygen Delivery Method Room Air Intake Visit Reasons: EP stuffy nose, mucus, not feeling well Intake Note: Patient here for cough and congestion that started last weekend. Patient Tobacco Use Status: Never used Tobacco Allergies Penicillins [PENICILLINS] Allergy (Intermediate, Verified 09/11/24 09:16) RASH codeine [CODEINE] Allergy (Unknown, Verified 09/11/24 09:16) VOMITING, nausea/vomiting penicillin V Allergy (Unknown, Verified 09/11/24 09:16) rash Bactrim Allergy (Unknown, Uncoded 09/11/24 09:16) severe vomiting, chills cipro Allergy (Unknown, Uncoded 09/11/24 09:16) severe vomiting, chills tetracycline Allergy (Unknown, Uncoded 09/11/24 09:16) rash Do you need a note to return to daycare/school/sports/work: No HPI HPI Comments History of Present Illness Details History - The patient is a 79-year-old female pr esenting with symptoms of an upper respiratory infection starting 6d ago, characterized by chills, fatigue, and cough with yellow-green sputum. - Symptoms worsened by 4d ago leading to increased congestion with similar colored nasal discharge. - She denies fever, respiratory distress , or a significant pulmonary history, including asthma or COPD. - The patient has received all recommend ed COVID-19 vaccinations and annual influenza vaccine. - The patient is currently managing symp toms primarily with rest, expressing concerns about using [id number] medications due to potential blood pressure effects. Physical Exam General: Cooperative, healthy appearing, comfortable and no acute distress Orientation/consciousness: Patient oriented x3 Limitations: No limitations Head: Normal to inspection Ears: Hearing grossly normal bilaterally, external ears normal and TM's normal bilaterally Nose: Normal external nose present, Normal nares present and No nasal discharge present Face and sinus: Normal facial exam and Yes sinuses nontender Mouth: Normal oral and palatal mucosa present and moist mucous membranes Throat: Yes tonsils normal, Yes uvula midline. Posterior oropharynx erythema Eyes: Appearance normal, both eyes and all related structures Neck: Normal visual inspection Respiratory: Clear to auscultation bilaterally. Normal respiratory effort, able to speak in complete sentences, Actively coughing, no respiratory distress, not tachypneic, no tripod positioning and no use of accessory muscles Cardiovascular: Regular rate and rhythm. Normal S1 and S2 Skin: No rashes or lesions noted Neuro: Patient oriented x3 Extremities: Normal to inspection and Yes no clubbing, cyanosis or edema PFSH Social History Patient Tobacco Use Status: Never used Tobacco Review of Systems Const All systems reviewed & are unremarkable except as noted in HPI and below Physical Exam Vital Signs: Last Vital Signs Temp 98.3 F 09/11/24 09:15 Pulse 85 09/11/24 09:15 BP 138/80 09/11/24 09:15 Pulse Ox 99 09/11/24 09:15 Oxygen Delivery Method Room Air 09/11/24 09:15 Assessment & Plan Assessment & Plan (1) URI, acute: Code(s): J06.9 - Acute upper respiratory infection, unspecified Plan: Plan Diagnostic testing for influenza, COVID-19, and RSV was performed due to symptoms indicative of an upper respiratory infection with influenza-like characteristics. Pending test results, supportive care including potential antihistamine-decongestant therapy, was discussed. Considering the patient's concern about blood pressure effects, consultation with a pharmacist is recommended to explore suitable options, such as Coricidin. Results will dictate further management. The patient will be contacted with test outcomes promptly to ensure timely initiation of specific therapy if needed. Sent Zpak and pt agreed to wait 4 -5 more days before picking it up and only if viral testing negative and she is not better by then, to cover for atypical pna. Patient was informed and verbally consented to the use of an ambient scribe for clinic note documentation during this visit Orders: Orders SARS-CoV2/FLU/RSV Today J06.9 - Acute upper respiratory infection, unspecified Medications: New azithromycin For 250 mg dose pack: take 500 mg today (day 1), then 250 mg for 4 days (days 2-5) PO 6 tabs 0RF Coding Level of Care Code New Pt Level 3 (64859) Diagnoses URI, acute J06.9
[2024-09-11 09:15] VITALS: BP 138/80; PULSE 85; TEMP 36.8; O2SAT 99
== END 2024-09-11 10:09 | disposition home or self-care (01) ==
PROVIDERS: PCP Family Medicine; Visit Provider Physician Assistant
DX: J06.9 Acute upper respiratory infection, unspecified (principal)

== ENCOUNTER 2024-09-11 08:23 | Outpatient (REF) | payer MEDICARE, OTHER, SELFPAY ==
[2024-09-11 18:12] LABS: Influenza A PCR NEGATIVE (Negative); Influenza B PCR NEGATIVE (Negative); Resp Syncy Virus RNA Qual PCR NEGATIVE (Negative); SARS COV2 PCR INHOUSE NEGATIVE (Negative)
== END 2024-09-11 08:24 | disposition home or self-care (01) ==
LOC: HO.LAB 08:23
PROVIDERS: PCP Family Medicine; Visit Provider Physician Assistant
DX: J06.9 Acute upper respiratory infection, unspecified (principal)
CPT/HCPCS: 0241U; 99202

== ENCOUNTER 2024-12-09 09:00 | Outpatient (REF) | payer MEDICARE, OTHER, SELFPAY ==
--- NOTE | ~2024-12-09 | MM_ITS ---
EXAMINATION: DXA BONE DENSITY AXIAL HISTORY: M85.89 OTHER SPECIFIED DISORDER OF BONE DENSITY AND STRUCTURE TECHNIQUE: CQuotient Dual energy absorptiometry (DEXA) of the lumbar spine, total left hip, and femoral neck was performed. COMPARISON: Comparison is made with the prior examination dated 03/17/2021. FINDINGS: The bone mineral density of the lumbar spine is 1.065, corresponding to a T-score of -1.0, and a Z-score of -0.1. This is indicative of normal bone mineral density. This represents a BMD change of 4.5% compared to the prior exam. This is statistically significant. The bone mineral density of the left total hip is 0.719, corresponding to a T-score of -2.3, and a Z-score of -1.0. This is indicative of osteopenia. This represents a BMD change of -8.6% compared to the prior exam. This is statistically significant. The bone mineral density of the left femoral neck is 0.674, corresponding to a T-score of -2.6, and a Z-score of -1.1. This is indicative of osteoporosis.- This represents a BMD change of 7.3% compared to the prior exam. FRACTURE RISK: The FRAX index suggests a ten year probability of major osteoporotic fracture of 18.7%, and of hip fracture 6.5%. MM/XR DEXA axial skeleton IMPRESSION: Based on bone mineral density, and according to World Health Organization (WHO) criteria, the diagnosis is consistent with osteoporosis. All bone density values are in grams per centimeter squared (g/cm2). Statistically, 68% of repeat scans fall within 1 SD (+/- 0.010 g/cm2 for AP spine L1-L4) and 1 SD (+/- 0.012 g/cm2 for femur total) FRAX is a trademark of the [employer]'s [place] [facility] Metabolic Bone Disease, a World Health Organization (WHO) Collaborating Center. Electronically signed by: Laith Allan MD 12/10/2024 08:56 AM EDT
== END 2024-12-09 09:01 | disposition home or self-care (01) ==
LOC: HO.MAMMO 09:00
PROVIDERS: PCP Family Medicine; Visit Provider Student in an Organized Health Care Education/Training Program
DX: M85.80 Other specified disorders of bone density and structure, unspecified site (principal); M85.89 Other specified disorders of bone density and structure, multiple sites
CPT/HCPCS: 77080

== ENCOUNTER → 2024-12-09 09:15 | Outpatient (BNV) | payer MEDICARE, OTHER, SELFPAY | PROVIDERS: PCP Family Medicine; Visit Provider Radiology Diagnostic Radiology | DX: E28.39 Other primary ovarian failure (principal) | CPT/HCPCS: 77080 ==

== ENCOUNTER 2024-12-17 14:54 | Outpatient (REF) | payer MEDICARE, OTHER, SELFPAY ==
--- NOTE | ~2024-12-17 | US_ITS ---
EXAMINATION: US THYROID HISTORY: MULTINODULAR GOITER, ?STABILITY TECHNIQUE: Real-time grayscale ultrasound imaging was performed and images were reviewed. COMPARISON: Comparison is made with the prior examination dated 09/24/2023. FINDINGS: SIZE: The right thyroid lobe measures 5.2 x 2.6 x 2.1 cm. The left thyroid lobe measures 4.5 x 1.6 x 2.0 cm. The isthmus measures 6 mm. FLOW: Flow to the gland is normal. ECHOGENICITY: The echotexture of the gland is heterogeneous. NODULES: Multiple nodules are again identified as described below: Nodule #: 1 Location: Midportion of the right thyroid lobe measuring 2.6 x 1.5 x 1.9 cm (previously 1.7 x 1.9 x 1.0 cm). Shape: Wider than tall (0 points) Margins: Smooth (0 points) Echotexture: Indeterminate (1 point) Composition: Mostly solid (2 points) Calcifications: None (0 points) Total points: 3 TIRADS: TR3: Mildly suspicious. Nodule #: 2 Location: Lower pole of the right thyroid lobe measuring 2.5 x 2.0 x 2.3 cm (not seen previously). Shape: Wider than tall (0 points) Margins: Smooth (0 points) Echotexture: Hypoechoic (2 points) Composition: Mostly solid (2 points) Calcifications: None (0 points) Total points: 4 TIRADS: TR4: Moderately suspicious. Nodule #: 3 Location: Midportion of the left thyroid lobe measuring 2.4 x 1.1 x 2.0 cm (previously 1.8 x 1.1 x 1.4 cm). Shape: Wider than tall (0 points) Margins: Smooth (0 points) Echotexture: Hyperechoic (1 point) Composition: Mostly solid (2 points) Calcifications: Punctate calcifications (3 points) Total points: 6 TIRADS: TR4: Moderately suspicious. US/US thyroid IMPRESSION: Moderately suspicious nodules at the lower pole of the right thyroid lobe (#2) and in the midportion of the left thyroid lobe (#3). According to ACR TI-RADS guidelines below, ultrasound-guided fine-needle aspiration is recommended. ACR TI-RADS Guidelines TR1 (0 points): Benign, No follow-up or biopsy required TR2 (2 points): Not Suspicious, No biopsy or follow up indicated TR3 (3 points): Mildly Suspicious, FNA if >= 2.5 cm, Follow if >= 1.5 cm TR4 (4-6 points): Moderately Suspicious, FNA if >= 1.5 cm, Follow if >= 1.0 cm TR5 (>=7 points): Highly Suspicious, FNA if >= 1.0 cm, Follow if >= 0.5 cm Electronically signed by: Laith Allan MD 12/18/2024 07:48 AM EDT
== END 2024-12-17 14:55 | disposition home or self-care (01) ==
LOC: HO.US 14:54
PROVIDERS: PCP Family Medicine; Visit Provider Student in an Organized Health Care Education/Training Program
DX: E04.2 Nontoxic multinodular goiter (principal)
CPT/HCPCS: 76536

== ENCOUNTER → 2024-12-17 15:15 | Outpatient (BNV) | payer MEDICARE, OTHER, SELFPAY | PROVIDERS: PCP Family Medicine; Visit Provider Radiology Diagnostic Radiology | DX: E04.2 Nontoxic multinodular goiter (principal) | CPT/HCPCS: 76536 ==

== ENCOUNTER 2025-04-21 06:44 | Outpatient (REF) | payer MEDICARE, OTHER, SELFPAY ==
--- OUTSIDE RECORDS SUMMARY | 2025-04-16 08:20 | XMS_ITS | Encounter Summary ---
Author Organization [facility] Address [address] [place] [id number] Phone Care Team Providers Care Technology Integration Specialist Name Role Phone Laith Alford DO Primary Care Provider [phone] Reason for Visit * Reason Comments Right Foot Injury Encounter Details Date Type Department Care Team ([facility] st Contact Info) Description 04/16/2025 8:20 AM EDT Office Visit [facility] at [address] [phone] Maxx Teixeira PA-C [address] [place] [address] Orthopedics & Sports [facility], [place], [place] [id number] [email or web address] David Toure PA-C [address] [place] [address] Orthopedics Sports [facility], [place], [place] [id number] [email or web address] Right foot pain (Primary Dx); Impacted fracture Social History Tobacco Use Types Packs/Day Years Used Date Smoking Tobacco: Never Smokeless Tobacco: Never Alcohol Use Standard Drinks/Week Comments Yes 1 (1 standard drink = 0.6 oz pur e alcohol) per month Education Answer Date Recorded Are you interested in more education? Not on joelle e 11/10/2022 Are you concerned about learning? Not on file 11/10/2022 No 11/10/2022 No 11/10/2022 Digital Access Answer Date Recorded No 12/09/2022 No 12/09/2022 Reliable internet access at home? Not on file 12/09/2022 Device with a working camera? 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 * Foot Sprain: Metatarsophalangeal Joint: Rehab Exercises (Citizen Of [place]) documented in this encounter Progress Notes * Laura Ulloa MA - 04/16/2025 8:20 AM EDT Patient was provided a Medium Post Op Shoe brace. Education was provided regarding the use of the certified medical technician assistant and the billing. * David Toure PA-C - 04/16/2025 8:20 AM EDT Images from the original note were not included. [facility] [address] [place] [address] Orthopedics & Sports Medicine:: Name: Fabiola Canales Date of Visit: 04/16/2025 CC: Right foot injury Patient is a very pleasant 80-year-old female here for evaluation of a right foot injury. In brief,she was at a picnic with her family and stepped on a toy last weekend. Since that time she has had marked pain and tenderness in the arch of her foot and weightbearing has been consistently painful since that time. She has been trying to manage this with anti-inflammatories and ice alone. Physical Exam: She is well-appearing and in no apparent distress. Skin: clean, dry and intact with no signs of infection Mild swelling at the arch of her foot TTP at the medial longitudinal arch of the right foot Patient is able to dorsiflex and plantar flex the ankle and fully flex and extend all toes Neurovascular: Intact motor exam in the tibialis anterior, extensor hallicus longus and gastroc-soleus muscles. Intact sensation in the deep and superficial peroneal nerve distribution. Palpable DP pulse. No numbness or tingling in the ankle or foot. Imaging: X-rays performed today and reviewed with patient demonstrates no osseous abnormality, fracture or dislocation Assessment: Right foot injury consistent a bone bruise Plan: Detailed discussion of pathophysiology, incorporating anatomic illustrations and models regarding the above 1. At this time we will manage this conservatively with immobilization and observation 2. Patient was placed in a postop shoe to use when ambulatory, she may remove for hygiene and skin care, showering, and sleeping 3. Home exercise program given 4. Continue with RICE therapy and anti-inflammatories as needed for pain 5. I would like to see her back as needed for follow up. The patient???s agenda was elicited and addressed during the visit. All questions were satisfactorily answered and the patient was in agreement with this plan. Thank you for letting me helping me take care of your patient. We are happy to help with all knee, shoulder, hip, and athletic injuries. Sincerely, David Toure MS, LNIO Orthopedics & Sports Medicine [facility] documented in this encounter Plan of Treatment Upcoming Encounters Date Type Department Care Team (Late st Contact Info) Description 05/18/2025 9:00 AM EST Office Visit [address] [address] Laith Alford DO [address] [place] [phone] 06/02/2025 12:30 PM EST Office Visit [facility] Orthopedics & Sports Medicine [address] [place] [phone] Lc Pa PA-C [address] [place] [address] Orthopedics & Sports Medicine, [facility] [place] [address] documented as of this encounter Results * XR FOOT 3 OR MORE VIEWS (RIGHT) (04/16/2025 8:28 AM EDT) Narrative SYSTEMGENERATED, DOCUMENTATION - 04/16/2025 8:28 AM EDT This image report has been auto-finalized and has not been read by a Radiologist. Interpretation has been included in the provider encounter note for this date of service. David Toure PA-C IMG XR LOWER EXTREMITY Final Result documented in this encounter Visit Diagnoses Diagnosis Right foot pain- Primary Pain in soft tissues of limb Impacted fracture Right foot pain Pain in soft tissues of limb documented in this encounter Additional Health Concerns Assessment Noted Time PHQ-2 Depression Total Score: 0 01/20/20 25 8:30 AM EDT documented as of this encounter Care Teams Technology Integration Specialist Relationship Specialty Start Date End Date Laith Alford DO [address] [place] [phone] [email or web address] PCP - General Family Medicine 05/03/23 documented as of this encounter Additional Source Comments The information contained in this document represents components of the legal health record. It is not the complete legal health record.[facility]
--- OUTSIDE RECORDS SUMMARY | 2025-04-16 08:21 | XMS_ITS | Encounter Summary ---
Author Organization [facility] Address [address] [place] [address] [place] [address] Phone Care Team Providers Care Speedometer Inspector Name Role Phone Laith Alford DO Primary Care Provider [phone] Encounter Details Date Type Department Care Team (Latest Contact Info) Description 04/16/2025 8:21 AM EDT - 04/16/2025 11:59 PM EDT Hospital Encounter [address] [address] David Toure PA-C [address] [place] [address] Orthopedics & Sports Medicine, [place] [address] [email or web address] [email or web address] Disposition: Home or Self Care Social History Tobacco Use Types Packs/Day Years [...] on file documented as of this encounter Medications at Time of Discharge alendronate (FOSAMAX) 70 MG tablet Take 1 tablet (70 mg total) by mouth every 7 days. Take in the morning with a full glass of water, on an empty stomach, and do not take anything else by mouth or lie down for the next 30 min. 4 tablet 11 01/19/2025 calcium citrate-vitamin D2 (ALISA-CITRATE) 250 mg-2.5 mcg (100 unit) per tablet 1 tablet. cholecalciferol (VITAMIN D3) 50,000 unit capsule Take 50,000 Int'l Units by mouth daily. 05/30/2023 dilTIAZem (CARDIZEM CD) 360 MG 24 hr capsule TAKE 1 CAPSULE BY MOUTH DAILY, (INCREASING DOSE) 11/01/2023 escitalopram oxalate (LEXAPRO) 5 MG tablet Take 5 mg by mouth daily. furosemide (LASIX) 20 MG tablet Take 60 mg by mouth every morning. 09/18/2023 losartan (COZAAR) 100 MG tablet Take 100 mg by mouth daily. potassium chloride (MICRO-K) 10 mEq CR capsule Take 10 mEq by mouth. 05/30/2023 pravastatin (PRAVACHOL) 40 MG tablet Take 40 mg by mouth. 05/30/2023 documented as of this encounter Plan of Treatment Upcoming Encounters Date Type Department Care Team (Late st Contact Info) Description 05/18/2025 9:00 AM EST Office Visit [address] [place] [address] Laith Alford DO [address] [place] [address] 06/02/2025 12:30 PM EST Office Visit [facility] Orthopedics & Sports Medicine [address] [place] [phone] Lc Pa PA-C [address] [place] [address] [facility] [place] [address] documented as of this encounter Procedures Procedure Name Priority Date/Time Associated Diagnosis Comments XR FOOT 3 OR MORE VIEWS (RIGHT) Routine 04/16/2025 8:28 AM EDT Right foot pain documented in this encounter Results * XR FOOT 3 [...] this encounter Visit Diagnoses Diagnosis Right foot pain Pain in soft tissues of limb documented in this encounter Additional Health Concerns Assessment Noted Time PHQ-2 Depression Total Score: 0 01/20/20 25 8:30 AM EDT documented as of this encounter Care Teams Speedometer Inspector Relationship Specialty Start Date End Date Laith Alford DO [address] [place] [phone] PCP - General Family Medicine 05/03/23 documented as of this encounter Additional Source Comments The information contained in this document represents components of the legal health record. It is not the complete legal health record.[facility]
--- OUTSIDE RECORDS SUMMARY | 2025-04-21 06:47 | XMS_ITS | Patient Health Record ---
Author Organization [facility] Address [address] [place] [phone] Care Team Providers Care Biology Laboratory Assistant Name Role Phone Laith Estes [phone] Reason For Referral No Information Plan Of Treatment No Information
--- OUTSIDE RECORDS SUMMARY | 2025-04-21 06:47 | XMS_ITS | Clinical Summary ---
Author Organization [facility] Address [address] [place] [phone] Phone Care Team Providers Care Retail Office Associate Name Role Phone Laith Alford DO Primary Care Provider [phone] Allergies Active Allergy Reactions Criticality Noted Date Comments Sulfamethoxazole-Trimethoprim 2022 Codeine 04/03/2023 Penicillins 04/03/2023 Tetracycline 04/03/2023 Medications losartan (COZAAR) 100 MG tablet Take 100 mg by mouth daily. Active furosemide (LASIX) 20 MG tablet Take 60 mg by mouth every morning. 09/18/2023 Active dilTIAZem (CARDIZEM CD) 360 MG 24 hr capsule TAKE 1 CAPSULE BY MOUTH DAILY, (INCREASING DOSE) 11/01/2023 Active calcium citrate-vitamin D2 (ALISA-CITRATE) 250 mg-2.5 mcg (100 unit) per tablet 1 tablet. Active escitalopram oxalate (LEXAPRO) 5 MG tablet Take 5 mg by mouth daily. Active potassium chloride (MICRO-K) 10 mEq CR capsule Take 10 mEq by mouth. 05/30/2023 Active pravastatin (PRAVACHOL) 40 MG tablet Take 40 mg by mouth. 05/30/2023 Active cholecalciferol (VITAMIN D3) 50,000 unit capsule Take 50,000 Int'l Units by mouth daily. 05/30/2023 Active alendronate (FOSAMAX) 70 MG tablet Take 1 tablet (70 mg total) by mouth every 7 days. Take in the morning with a full glass of water, on an empty stomach, and do not take anything else by mouth or lie down for the next 30 min. 4 tablet 11 01/19/2025 Active Hospital, Clinic, or Other Facility Administered Medication Ordered Dose Route Frequency Start Date End Date Status hyaluronate sodium, stabilized (DUROLANE) intra-articular syringe 60 mg 60 mg IAtc See admin instructions 04/03/2023 Active hyaluronate sodium, stabilized (DUROLANE) intra-articular syringe 60 mg 60 mg IAtc See admin instructions 11/13/2023 Active Active Problems Problem Noted Date Diagnosed Date Age-related osteoporosis wit hout current pathological fracture 01/19/2025 DM type 2 with diabetic peripheral neuropathy Type 2 diabetes mellitus wit h kidney complication, without long-term current use of insulin 01/09/2025 Type 2 diabetes mellitus with obesity 01/09/2025 Family history of colon cancer 12/02/2024 Overview (12/02/2024): Daughter Osteoarthritis of both knees 12/02/2024 Type 2 diabetes mellitus 10/28/2024 Assessment & Plan (01/19/2025 9:00 AM EDT): Diet controlled 6.8 History of breast cancer 05/14/2024 Overview (01/09/2025): 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 had lumpectomy followed by radiation last mammogram March 2024 Assessment & Plan (01/09/2025 3:21 PM EDT): 2010 status postlumpectomy and radiation discharged from heme-onc Last mammo 03/2024 Abnormal findings on diagnos tic imaging of other specified body structures 05/14/2024 Overview (12/02/2024): 05/14/2024 17:49 EDT - Laith Alford DO Abnormal chest x-ray CT scan showed the area in question is secondary vascular ectasia and torso rot tortuosity of the brachiocephalic and right subclavian vein Chronic kidney disease (CKD) stage G3a/A1, moderately decreased glomerular filtration rate (GFR) between 45-59 mL/min/1.73 square meter and albuminuria creatinine ratio less than 30 mg/g 10/31/2023 Essential hypertension 10/31/2023 Mixed hyperlipidemia 10/31/2023 Multiple thyroid nodules 10/31/2023 Overview (12/02/2024): Due for repeat ultrasound Assessment & Plan (01/19/2025 9:16 AM EDT): Endo eval pt prefers [facility] Seasonal affective disorder 10/31/2023 Severe obesity (BMI 35.0-39.9) with comorbidity 10/31/2023 Resolved Problems Problem Noted Date Diagnosed Date Resolved Date Osteopenia 10/31/2023 01/30/2025 Encounters Date Type Department Care Team Description 04/16/2025 8:21 AM EDT - 04/16/2025 11:59 PM EDT Hospital Encounter [address] [address] David Toure PA-C Discharge Disposition: Home or Self Care 04/16/2025 8:20 AM EDT Office Visit [facility] [address] [phone] Maxx Teixeira PA-C Freeman, Jacob Nathan, PA-C Right foot pain (Primary Dx); Impacted fracture 03/19/2025 Telephone [facility] [address] [place] [phone] Lisa Coleman, SANKET Godinez 01/30/2025 Orders Only [address] [place] [address] ProviderGenia MD 01/22/[address] [place] [address] Laith Alford DO Request For Records 01/19/2025 8:40 AM EDT Office Visit [address] [place] [address] Laith Alford DO Chronic kidney disease (CKD) stage G3a/A1, moderately decreased glomerular filtration rate (GFR) between 45-59 mL/min/1.73 square meter and albuminuria creatinine ratio less than 30 mg/g (Primary Dx); Essential hypertension; History of breast cancer; Mixed hyperlipidemia; Multiple thyroid nodules; Osteopenia; Seasonal affective disorder; Severe obesity (BMI 35.0-39.9) with comorbidity; Type 2 diabetes mellitus; Type 2 diabetes mellitus with stage 3a chronic kidney disease, without long-term current use of insulin; Type 2 diabetes mellitus with obesity; Age-related osteoporosis without current pathological fracture; DM type 2 with diabetic peripheral neuropathy from Last 3 Months Immunizations Immunization Administration Dates Next Due COVID-19 (Pre-05/07) Pfizer Vaccine, Bivalent 12+ 10/23/2022 Influenza High-Dose Quadriva lent Preservative Free IM 03/31/2022,03/26/2021,05/13/2020 Influenza High-Dose Trivalen t Preservative Free IM 03/25/2024,04/11/2019,04/02/2018,2016,04/12/2016 Influenza Quadrivalent Adjuv anted Preservative Free IM 03/23/2023 Influenza, Unspecified Formulation 03/23,03/31/2022,03/26/2021,2019,04/11/2019,04/02/2018,04/19/2017,0 04/12/2016 Pneumococcal conjugate PCV13 12/21/2016 Pneumococcal conjugate PCV20 07/31/2023 RSV Vaccine (monovalent, adjuvanted) 04/13/2023 Tdap 04/18/2018 Zoster live 12/21/2016 Zoster recombinant 04/19/2019,02/05/2019 Family History Medical History Relation Comments Colon cancer Daughter Hypertension Daughter Esophageal cancer Mother Hypertension Mother Hypertension Son 1 Hypertension Son 2 Relation Status Comments Daughter Alive Mother Son 1 Alive Son 2 Alive Social History Tobacco Use Types Packs/Day Years [...] file Not on file Not on file Last Filed Vital Signs Vital Sign Reading Time Taken Comments Blood Pressure 120/64 01/19/2025 8:33 AM EDT Pulse 72 01/19/2025 8:33 AM EDT Temperature 36.2 C (97.2 F) 01/19/2025 8:33 AM EDT Respiratory Rate - - Oxygen Saturation 98% 01/19/2025 8:33 AM EDT Inhaled Oxygen Concentration - - Weight 93 kg (205 lb) 01/19/2025 8:33 AM EDT Height 165.1 cm (5' 5 ) 01/19/2025 8:33 AM EDT Body Mass Index 34.11 01/19/2025 8:33 AM EDT Plan of Treatment Upcoming Encounters Date Type Department Care Team (Late st Contact Info) Description 05/18/2025 9:00 AM EST Office Visit [address] [address] Laith Alford DO [address] [place] [phone] 06/02/2025 12:30 PM EST Office Visit [facility] [address] [place] [phone] Lc Pa PA-C [address] [place] [address] [facility] [place] [address] Health Maintenance Due Date Last Done Comments HEPATITIS C SCREENING 1963 DIABETIC EYE EXAM 11/27/2024 INFLUENZA VACCINE (#1) 2025 4, 03/23/2023, 03/23/2023, Additional history exists COVID-19 VACCINE ( season) 2025 03/25/2024, 04/13/2023, 10/23/2022, Additional history exists HEMOGLOBIN A1C 05/02/2025 10/31/2024, 05/15/2024 CREATININE LEVEL 05/15/2025 05/15/2024 POTASSIUM LEVEL 05/15/2025 05/15/2024 BLOOD PRESSURE 07/22/2025 01/19/2025 DEPRESSION SCREENING 01/19/2026 01/19/2025 Adult Td,Tdap Booster 04/18/2028 04/18/2018 ZOSTER VACCINES Completed 04/19/2019, 01/14, 12/21/2016 RSV VACCINE Completed 04/13/2023 PNEUMOCOCCAL VACCINES (50+ years) Completed 07/31/2023, 12/21/2016 OSTEOPOROSIS SCREENING INITIAL (ONE-TIME) Completed 12/09/2024 SMOKING STATUS SCREENING (Once After 26 Yrs) Completed 04/16/2025 HEPATITIS A VACCINES Aged Out No long er eligible based on patient's age to complete this topic HIB VACCINES Aged Out No longer eligi ble based on patient's age to complete this topic MENINGOCOCCAL VACCINES (ACWY) Aged Out No longer eligible based on patient's age to complete this topic MENINGOCOCCAL VACCINES (B) Aged Out N o longer eligible based on patient's age to complete this topic Medical Devices Not on file Procedures Procedure Name Priority Date/Time Associated Diagnosis Comments XR FOOT 3 OR MORE VIEWS (RIGHT) Routine 04/16/2025 8:28 AM EDT Right foot pain HM DEXA SCAN Routine 12/09/2024 9:39 AM EDT OUTSIDE HEMOGLOBIN A1C Routine 10/31/2024 OUTSIDE POTASSIUM LEVEL Routine 05/15/2024 OUTSIDE SERUM CREATININE LEVEL Routine 05/15/2024 from Last 3 Months or Most Recently Relevant to Health Maintenance Results * XR FOOT 3 OR MORE VIEWS (RIGHT) (04/16/2025 8:28 AM EDT) Narrative SYSTEMGENERATED, DOCUMENTATION - 04/16/2025 8:28 AM EDT This image report has been auto-finalized and has not been read by a Radiologist. Interpretation has been included in the provider encounter note for this date of service. Result [facility] David Toure PA-C IMG XR LOWER EXTREMITY Final Result * HM DEXA SCAN (12/09/2024 9:39 AM EDT) Result [facility] Provider HEALTH MAINTENANCE Edited Result - Final * (ABNORMAL) Outside HbA1c (10/31/2024) Hemoglobin A1c - External 6.7(A) 4.0 - 5.6 % [facility] Result [facility] Provider LAB BLOOD ORDERABLES Annette l Result Performing Organization Address [facility]/ZIP Co de Phone Number [email or web address] [address] [place] [address] * Outside Potassium Level (05/15/2024) Potassium level - External 4.5 3.4 - 5.0 mmol/L [facility] Result [facility] Provider LAB BLOOD ORDERABLES Annette l Result Performing Organization Address City/[facility]/ZIP Co de Phone Number [facility] [address] [place] [address] * (ABNORMAL) Outside Serum Creatinine Level (05/15/2024) Creatinine, serum - External 56(A) 0.8 - 1.3 mg/dL Result [facility] Provider LAB BLOOD ORDERABLES Annette l Result from Last 3 Months or Most Recently Relevant to Health Maintenance Insurance MEDICARE PART A & B [facility] [employer] SU[employer]LE[employer] MEDICARE PART A & B Member Subscriber Plan / Payer ( fective 2011-Present) Name:Janett Canalese Lito Member ID:[id number] Relation to Subscriber:Self Name:ParkerFabiola Lito Subscriber ID:[id number] Payer ID:[id number] Group ID:Not on file Type:Medicare Address: [employer] [address] [place] [phone] [facility] [employer] SUPPLEMENT MEDICARE PART A & B [facility] [employer] EX[employer]ION MEDICARE SUPPLEMENT MEDICARE PART A & B [employer] MEDICARE SUPPLEMENT MEDICARE PART A & B Member Subscriber Plan / Payer ( fective 2011-Present) Name:Fabiola Canales Member ID:[id number] Relation to Subscriber:Self Name:Fabiola Canales Subscriber ID:[id number] Payer ID:[id number] Group ID:Not on file Type:Medicare Address: [employer] [address] [place] [phone] [employer] MEDICARE SUPPLEMENT MEDICARE PART A & B [employer] MEDICARE SUPPLEMENT MEDICARE PART A & B [facility] [employer] MEDICARE SUPPLEMENT MEDICARE PART A & B [facility] [place] [phone] MEDICARE PART A & B [facility] [employer] MEDICARE SUPPLEMENT Care Teams Retail Office Associate Relationship Specialty Start Date End Date Laith Alford DO [address] [place] [address] [email or web address] PCP - General Family Medicine 05/03/23 Additional Source Comments The information contained in this document represents components of the legal health record. It is not the complete legal health record.[facility]
[2025-04-21 10:22] LABS: MANUAL DIFF FLAG NO
[2025-04-21 10:31] LABS: Hematocrit 41.0 % (37.0-47.0); Hemoglobin 13.6 g/dl (12.0-16.0); Imm Gran Abs Auto 0.03 X10*3/uL (0.00-0.03); Imm Gran Pct Auto 0.4 % (0.0-0.4); Lymphocytes Absolute Auto 1.6 X10*3/uL (1.2-4.9); Mean Corpuscular HGB Conc 33.2 g/dl (31.0-35.0); Mean Corpuscular Hemoglobin 29.4 pg (27.0-33.0); Mean Corpuscular Volume 88.7 fL (80.0-98.0); NRBC Abs Auto 0.000 X10*3/uL (0.0-0.012); NRBC Pct Auto 0.0 /100WBC (0.0-0.2); Platelet Count 228 X10*3/uL (160-400); Red Blood Count 4.62 X10*6/uL (4.20-5.50); White Blood Count 7.3 X10*3/uL (4.8-10.8)
[2025-04-21 10:48] LABS: Alanine Aminotransferase 13 U/L (0-31); Albumin Level 4.2 g/dL (3.5-5.0); Alkaline Phosphatase 105 U/L (39-117); Anion Gap 13 (12-20); Aspartate Amino Transferase 27 U/L (5-31); Blood Urea Nitrogen 18 mg/dL (9-16); Calcium 9.3 mg/dL (8.4-10.2); Carbon Dioxide 26 mmol/L (22-29); Chloride 110 mmol/L (96-108); Cholesterol 157 mg/dL (<200); Estimated Glomerular Filt Rate 56; HDL Cholesterol 37 mg/dL (>40); Potassium 4.1 mmol/L (3.3-5.1); Sodium 145 mmol/L (135-145); Total Protein 6.8 g/dL (6.5-8.0); Triglycerides 157 mg/dL (<150)
== END 2025-04-21 06:45 | disposition home or self-care (01) ==
LOC: HO.HMGCLDS 06:44
PROVIDERS: PCP Family Medicine; Visit Provider Family Medicine
DX: E11.22 Type 2 diabetes mellitus with diabetic chronic kidney disease (principal); N18.31 Chronic kidney disease, stage 3a; E78.2 Mixed hyperlipidemia
CPT/HCPCS: 36415; 80053; 80061; 83036; 85025

== ENCOUNTER 2025-07-15 08:22 | Outpatient (REF) | payer MEDICARE, OTHER, SELFPAY ==
--- NOTE | ~2025-07-15 | MM_ITS ---
EXAMINATION: MM SCREENING DIGITAL BREAST TOMOSYNTHESIS, BILATERAL CLINICAL INFORMATION: Screening. Asymptomatic. COMPARISON: Mammography: Comparison is made with available priors TECHNIQUE: Digital breast mammography with tomosynthesis is performed in both the craniocaudal and mediolateral oblique views along with computer-aided detection (CAD). FINDINGS: The breasts are heterogeneously dense, which may obscure small masses. Left lumpectomy changes. Right post surgical changes are stable. There are no significant masses, abnormal calcifications, or other abnormalities. MM/MM tomosynthesis screening BI IMPRESSION: No mammographic evidence of malignancy. ASSESSMENT: BI-RADS Category 2: Benign RECOMMENDATION: Routine annual mammography screening. 1 year F/U This examination should not preclude the clinical evaluation of a suspicious palpable abnormality. This patient's information was entered into a reminder system with a target due date for their next mammogram. Electronically signed by: Nolvia Phan DO 07/15/2025 10:17 AM HEATHER
--- OUTSIDE RECORDS SUMMARY | 2025-07-15 08:28 | XMS_ITS | Patient Health Record ---
Author Organization [facility] Address [address] [place] [phone] Care Team Providers Care Welding Inspector Name Role Phone Laith Estes [phone] Reason For Referral No Information Plan Of Treatment No Information
--- OUTSIDE RECORDS SUMMARY | 2025-07-15 08:28 | XMS_ITS | Clinical Summary ---
Author Organization [facility] Address [address] [place] [phone] Phone Care Team Providers Care Shipping Support Name Role Phone Laith Alford DO Primary Care Provider [phone] Allergies Active Allergy Reactions Criticality Noted Date Comments Sulfamethoxazole-Trimethoprim 2022 Codeine 04/03/2023 Penicillins 04/03/2023 Tetracycline 04/03/2023 Medications pravastatin (PRAVACHOL) 40 MG tablet Take 40 mg by mouth. 05/30/20 23 Active cholecalcifero l (VITAMIN D3) 50,000 unit capsule Take 50,000 Int'l Units by mouth daily. 05/30/20 23 Active alendronate (FOSAMAX) 70 MG tablet Take 1 tablet (70 mg total) by mouth every 7 days. Take in the morning with a full glass of water, on an empty stomach, and do not take anything else by mouth or lie down for the next 30 min. 4 tablet 11 01/20/20 25 Active furosemide (LASIX) 20 MG tablet Take 3 tablets (60 mg total) by mouth every morning. 270 tablet 04/22/20 25 Active losartan (COZAAR) 100 MG tablet Take 1 tablet (100 mg total) by mouth daily. 90 tablet 04/22/20 25 Active escitalopram oxalate (LEXAPRO) 5 MG tablet Take 1 tablet (5 mg total) by mouth daily. 90 tablet 3 04/22/20 25 Active dilTIAZem (CARDIZEM CD) 180 MG 24 hr capsule Take 2 capsules (360 mg total) by mouth daily. 180 capsule 3 06/22/20 25 Active potassium chloride (MICRO-K) 10 mEq CR capsule Take 1 capsule (10 mEq total) by mouth daily. 90 capsule 07/06/20 25 Active dilTIAZem (CARDIZEM CD) 360 MG 24 hr capsule TAKE 1 CAPSULE BY MOUTH DAILY, (INCREASING DOSE) 11/01/19 24 025 Discontinued potassium chloride (MICRO-K) 10 mEq CR capsule Take 10 mEq by mouth. 05/30/20 23 025 Discontinued(Re order) Hospital, Clinic, or Other Facility Administered Medication Ordered Dose Route Frequency Start Date End Date Status hyaluronate sodium, stabilized (DUROLANE) intra-articular syringe 60 mg 60 mg IAtc See admin instructions 04/03/2023 Active hyaluronate sodium, stabilized (DUROLANE) intra-articular syringe 60 mg 60 mg IAtc See admin instructions 11/13/2023 Active Active Problems Problem Noted Date Diagnosed Date Medicare annual wellness visit, subsequent 05/15 Overview (05/15/2025): HCM reviewed Age-related osteoporosis wit hout current pathological fracture 01/19/2025 Overview (05/18/2025): Started on Fosamax March 2025 plan to go for 5 years. 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 Continue losartan and optimize BP control 04/21/2025 last hemoglobin A1c at goal 6.5 continue current plan repeat lab Type 2 diabetes mellitus with obesity 01/09/2025 [...] Assessment & Plan (01/09/2025 3:21 PM EDT): 2011 status postlumpectomy and radiation discharged from heme-onc [...] creatinine ratio less than 30 mg/g 10/31/2023 Assessment & Plan (05/18/2025 9:44 AM EST): Stable last GFR 56 on 04/21 Continue to idealize BP control Continue losartan Essential hypertension 10/31/2023 Assessment & Plan (05/15/2025 2:55 PM EDT): At goal continue current medication and plan Mixed hyperlipidemia 10/31/2023 Assessment & Plan (05/15/2025 3:09 PM EDT): Last LDL 101 near goal continue statin diet and exercise repeat lab Multiple thyroid nodules 10/31/2023 Overview (12/02/2024): Due for repeat ultrasound Assessment & Plan (01/19/2025 9:16 AM EDT): [place]o eval [place] [facility] Seasonal affective disorder 10/31/2023 Severe obesity (BMI 35.0-39.9) with comorbidity 10/31/2023 Overview (05/15/2025): Continue work with diet and exercise Resolved Problems Problem Noted Date Diagnosed Date Resolved Date Osteopenia 10/31/2023 01/30/2025 Encounters Date Type Department Care Team Description 07/06/[address] [place] [address] Carina Purcell MA Medication Refill 06/22/2025 10:15 AM EST - 06/22/2025 11:59 PM EST Hospital Encounter [facility], X-Ray - [address] [place] [address] Laith Alford, Discharge Disposition: Home or Self Care 06/22/2025 9:30 AM EST Office Visit [address] [place] [address] Laith Alford DO Dyspnea on exertion (Primary Dx); Other cough; Acute gastroenteritis; Essential hypertension 06/22/[address] [place] [address] Laith Alford DO 06/02/2025 12:30 PM EST Office Visit [facility] [address] [place] [phone] Lc Pa, PA-C Primary osteoarthritis of both knees (Primary Dx) 05/20/2025 Orders Only [address] [place] [address] ProviderGenia MD 05/20/[address] [place] [address] Laith Alford DO Request For Records 05/18/2025 9:00 AM EST Office Visit [address] [place] [address] Laith Alford DO Medicare annual wellness visit, subsequent (Primary Dx); Essential hypertension; Chronic kidney disease (CKD) stage G3a/A1, moderately decreased glomerular filtration rate (GFR) between 45-59 mL/min/1.73 square meter and albuminuria creatinine ratio less than 30 mg/g; DM type 2 with diabetic peripheral neuropathy; Type 2 diabetes mellitus with diabetic nephropathy, without long-term current use of insulin; Mixed hyperlipidemia; Multiple thyroid nodules; Severe obesity (BMI 35.0-39.9) with comorbidity; Type 2 diabetes mellitus with stage 3a chronic kidney disease, without long-term current use of insulin; Seasonal affective disorder; Age-related osteoporosis without current pathological fracture; History of breast cancer; Primary osteoarthritis of both knees 05/18/[address] [facility] [address] [place] [place] [address] Yanet Araujo, joy operator 04/22/2025 Telephone [facility] [address] [place] [address] Yanet Araujo, RN Results 04/22/2025 Refill [facility] [address] [place] [address] Theodora Blake Medication Refill 04/21/2025 Orders Only [facility] [address] [place] [address] ProviderGenia MD 04/16/2025 8:21 AM EDT - 04/16/2025 11:59 PM EDT Hospital Encounter [address] [address] David Toure PA-C Discharge Disposition: Home or Self Care 04/16/2025 8:20 AM EDT Office Visit [facility] [address] [place] [phone] Maxx Teixeira PA-C Freeman, Jacob Nathan, PA-C Right foot pain (Primary Dx); Impacted fracture from Last 3 Months Immunizations Immunization Administration Dates Next Due COVID-19 (Pre-05/07) Pfizer Vaccine, Bivalent 12+ 10/23/2022 Influenza High-Dose Quadriva lent Preservative Free IM 03/31/2022,03/26/2021,05/13/2020 Influenza High-Dose Trivalen t Preservative Free IM 03/25/2025,03/25/2024,04/11/2019,2017,04/19/2017,04/12/2016 Influenza Quadrivalent Adjuv anted Preservative Free IM 03/23/2023 Influenza, Unspecified Formulation 03/23,03/31/2022,03/26/2021,2019,04/11/2019,04/02/2018,04/19/2017,0 04/12/2016 Pneumococcal conjugate PCV13 12/21/2016 Pneumococcal conjugate PCV20 07/31/2023 RSV Vaccine (monovalent, adjuvanted) 04/13/2023 Tdap 04/18/2018 Zoster live 12/21/2016 Zoster recombinant 04/19/2019,02/05/2019 Family History Medical History Relation Comments Colon cancer Daughter Hypertension Daughter Esophageal cancer Mother Hypertension Mother Hypertension Son 1 Hypertension Son 2 Relation Status Comments Daughter Alive Granddaughter 1 Alive Granddaughter 2 Alive Granddaughter 3 Alive Grandson Alive Mother Son 1 Alive Son 2 [...] with a working camera? Not on file Intimate Partner Violence Answer Date R ecorded Denied Basic Needs Not on file 05/18/2025 In the past 12 months have y ou been in a relationship with a person who hurts, threatens, or tries to control you? No 05/18/2025 Worried food would run out Not on file 05/18 In the past 12 months have y ou been in a relationship with a person who hurts, threatens, or tries to control you? 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 on file Not on file Not on file Last Filed Vital Signs Vital Sign Reading Time Taken Comments Blood Pressure 130/80 06/22/2025 9:16 AM EST Pulse 86 06/22/2025 9:16 AM EST Temperature 36.6 C (97.8 F) 06/22/2025 9:16 AM EST Respiratory Rate - - Oxygen Saturation 96% 06/22/2025 9:16 AM EST Inhaled Oxygen Concentration - - Weight 92.7 kg (204 lb 6.4 oz) 06/22/2025 9:16 A M EST Height 165.1 cm (5' 5 ) 06/22/2025 9:16 AM EST Body Mass Index 34.01 06/22/2025 9:16 AM EST Plan of Treatment Upcoming Encounters Date Type Department Care Team (Late st Contact Info) Description 07/20/2025 8:00 AM EST Office Visit [facility] [address] [place] [address] Kaitlyn Allen PA-C [address] [place] [address] Orthopedics & Sports Medicine, [place] [address] 11/16/2025 9:00 AM EDT Office Visit [facility] [address] [place] [address] [place] [address] Laith Alford, [address] [place] [phone] [email or web address] 05/20/2026 9:00 AM EST Office Visit [facility] [address] [place] [address] [place] [address] Laith Alford DO [address] [place] [id number] Health Maintenance Due Date Last Done Comments HEPATITIS C SCREENING 1963 COVID-19 VACCINE ( season) 2025 03/25/2025, 03/25/2024, 04/13/2023, Additional history exists DIABETIC EYE EXAM 10/01/2025 10/01/2024 BLOOD PRESSURE 12/21/2025 06/22/2025 HEMOGLOBIN A1C 12/21/2025 06/22/2025, 0 01/2025, 10/31/2024, Additional history exists DEPRESSION SCREENING 05/18/2026 05/18/2025 CREATININE LEVEL 06/22/2026 06/22/2025, 01/2025, 05/15/2024 POTASSIUM LEVEL 06/22/2026 06/22/2025, 0 01/2025, 05/15/2024 Adult Td,Tdap Booster 04/18/2028 04/18/2018 ZOSTER VACCINES Completed 04/19/2019, 01/14, 12/21/2016 RSV VACCINE Completed 04/13/2023 PNEUMOCOCCAL VACCINES (50+ years) Completed 07/31/2023, 12/21/2016 OSTEOPOROSIS SCREENING INITIAL (ONE-TIME) Completed 12/09/2024 INFLUENZA VACCINE Completed 03/25/2025, , 03/23/2023, Additional history exists SMOKING STATUS SCREENING (Once After 26 Yrs) Completed 06/22/2025 HEPATITIS A VACCINES Aged Out No long [...] Procedure Name Priority Date/Time Associated Diagnosis Comments CBC AND DIFFERENTIAL Routine 06/22/2025 10:42 AM EST Other cough Dyspnea on exertion HEMOGLOBIN A1C Routine 06/22/2025 10:42 AM EST Chronic kidney disease (CKD) stage G3a/A1, moderately decreased glomerular filtration rate (GFR) between 45-59 mL/min/1.73 square meter and albuminuria creatinine ratio less than 30 mg/g Mixed hyperlipidemia Type 2 diabetes mellitus Type 2 diabetes mellitus with stage 3a chronic kidney disease, without long-term current use of insulin LIPID PANEL Routine 06/22/2025 10:42 AM EST Chronic kidney disease (CKD) stage G3a/A1, moderately decreased glomerular filtration rate (GFR) between 45-59 mL/min/1.73 square meter and albuminuria creatinine ratio less than 30 mg/g Mixed hyperlipidemia Type 2 diabetes mellitus Type 2 diabetes mellitus with stage 3a chronic kidney disease, without long-term current use of insulin CBC AND DIFFERENTIAL Routine 06/22/2025 10:42 AM EST Other cough Dyspnea on exertion COMPREHENSIVE METABOLIC PANEL (CMP) Routine 06/22/2025 10:42 AM EST Other cough Dyspnea on exertion XR CHEST PA AND LATERAL 2 VIEWS Routine 06/22/2025 10:27 AM EST Dyspnea on exertion OUTSIDE LAB Routine 04/21/2025 2:04 PM EDT OUTSIDE POTASSIUM LEVEL Routine 04/21/2025 OUTSIDE HEMOGLOBIN A1C Routine 04/21/2025 OUTSIDE LDL Routine 04/21/2025 OUTSIDE ALT LEVEL Routine 04/21/2025 OUTSIDE TOTAL CHOLESTEROL Routine 04/21/2025 OUTSIDE ALKALINE PHSOPHATASE LEVEL Routine 04/21/2025 OUTSIDE GLUCOSE FASTING Routine 04/21/2025 OUTSIDE HDL Routine 04/21/2025 OUTSIDE SERUM CREATININE LEVEL Routine 04/21/2025 OUTSIDE TRIGLYCERIDES Routine 04/21/2025 XR FOOT 3 OR MORE VIEWS (RIGHT) Routine 04/16/2025 8:28 AM EDT Right foot pain DEXA SCAN Routine 12/09/2024 9:39 AM EDT DIABETES EYE EXAM FOR RESULT ENTRY ONLY Routine 10/01/2024 11:28 AM EDT from Last 3 Months or Most Recently Relevant to Health Maintenance Results * (ABNORMAL) Comprehensive Metabolic Panel (CMP) (06/22/2025 10:42 AM EST) Sodium 140 136 - 145 mmol/L 06/22/2025 5:20 PM [facility] Potassium 3.6 3.4 - 5.1 mmol/L 06/22/2025 5:20 PM [facility] Chloride 99 98 - 107 mmol/L 06/22/2025 5:20 PM [facility] CO2 24 20 - 31 mmol/L 06/22/2025 5:20 PM [facility] BUN 15 6 - 23 mg/dL 06/22/2025 5:20 PM [facility] Creatinine 0.90 0.50 - 1.00 mg/dL 06/22/2025 5:20 PM [facility] Glucose 128(H) 70 - 99 mg/dL 06/22/2025 5:20 PM [facility] Calcium 9.8 8.5 - 10.5 mg/dL 06/22/2025 5:20 PM [facility] AST 23 <33 U/L 06/22/2025 5:20 PM [facility] ALT 27 <34 U/L 06/22/2025 5:20 PM [facility] Alkaline Phosphatase 133(H) 40 - 130 U/L 06/22/2025 5:20 PM [facility] Bilirubin, Total 1.3(H) 0.0 - 1.2 mg/dL 06/22/2025 5:20 PM [facility] Total Protein 7.4 6.4 - 8.3 g/dL 06/22/2025 5:20 PM [facility] Albumin 4.4 3.5 - 5.2 g/dL 06/22/2025 5:20 PM [facility] Globulin 3.0 1.9 - 4.1 g/dL 06/22/2025 5:20 PM [facility] eGFR 65 >59 mL/min/1.7 3m2 06/22/2025 5:20 PM [facility] Comment:Estimated glomerular filtration rate calculated using the CKD-EPI refit equation. Anion Gap 17 3 - 17 mmol/L 06/22/2025 5:20 PM [facility] Blood (Blood) Venipuncture / Unknown 06/22/2025 10:42 AM EST 06/22/2025 10:42 AM EST us Laith Alford DO LAB BLOOD BKR ORDERABLES Final Result [facility] [address] [place] [address] * (ABNORMAL) CBC and Differential (06/22/2025 10:42 AM EST) WBC 9.41 4.00 - 11.00 K/uL 06/22/2025 4:05 PM [facility] RBC 5.06 4.00 - 5.20 M/uL 06/22/2025 4:05 PM [facility] Hemoglobin 14.1 12.0 - 16.0 g/dL 06/22/2025 4:05 PM [facility] Hematocrit 44.3 36.0 - 46.0 % 06/22/2025 4:05 PM [facility] MCV 87.5 80.0 - 100.0 fL 06/22/2025 4:05 PM [facility] MCH 27.9 27.0 - 31.0 pg 06/22/2025 4:05 PM [facility] MCHC 31.8(L) 32.0 - 36.0 g/dL 06/22/2025 4:05 PM [facility] MPV 10.3 8.4 - 12.0 fL 06/22/2025 4:05 PM [facility] RDW-CV 13.3 11.5 - 14.5 % 06/22/2025 4:05 PM [facility] PLT 316 150 - 450 K/uL 06/22/2025 4:05 PM [facility] Neutrophils 65.7 % 06/22/2025 4:05 PM [facility] Lymphocytes 24.5 % 06/22/2025 4:05 PM [facility] Monocytes 5.5 % 06/22/2025 4:05 PM [facility] Eosinophils 2.8 % 06/22/2025 4:05 PM [facility] Basophils 0.9 % 06/22/2025 4:05 PM [facility] Imm Grans 0.6 % 06/22/2025 4:05 PM [facility] NRBC 0.0 <=0.0 /100 WBCs 06/22/2025 4:05 PM [facility] Absolute Neutrophils 6.18 1.92 - 7.60 K/uL 06/22/2025 4:05 PM [facility] Absolute Lymphocytes 2.31 0.72 - 4.10 K/uL 06/22/2025 4:05 PM [facility] Absolute Monocytes 0.52 0.16 - 1.10 K/uL 06/22/2025 4:05 PM [facility] Absolute Eosinophils 0.26 0.00 - 0.50 K/uL 06/22/2025 4:05 PM [facility] Absolute Basophils 0.08 0.00 - 0.15 K/uL 06/22/2025 4:05 PM [facility] Absolute Imm Grans 0.06 0.00 - 0.09 K/uL 06/22/2025 4:05 PM [facility] Absolute NRBC 0.00 <=0.00 K cells/uL 06/22/2025 4:05 PM [facility] Absolute Neutrophils 6.18 1.92 - 7.60 K/uL 06/22/2025 4:05 PM [facility] Comment:Automated cell count . Manual ANC may differ if performed. Diff Type Auto 06/22/2025 4:05 PM [facility] Blood (Blood) Venipuncture / Unknown 06/22/2025 10:42 AM EST 06/22/2025 10:42 AM EST us Laith Alford DO LAB BLOOD BKR ORDERABLES Final Result [facility] [address] [place] [address] * (ABNORMAL) Hemoglobin A1c (06/22/2025 10:42 AM EST) Hemoglobin A1c 6.7(H) 4.3 - 5.6 % 06/22/2025 6:48 PM [facility] Calculated Mean Blood Glucose 146 mg/dL 06/22/2025 6:48 PM [facility] Comment:There is no [facility] normal range for the Estimated Average Glucose (EAG). However, a HbA1c of 5.6% (upper limit of normal) represents an EAG of 114 mg/dL. The diagnostic HbA1c level for diabetes is greater than or equal to 6.5%, which represents an EAG greater than or equal to 140 mg/dL. Blood (Blood) Venipuncture / Unknown 06/22/2025 10:42 AM EST 06/22/2025 10:42 AM EST us Laith Alford DO LAB BLOOD BKR ORDERABLES Final Result Performing Organization Address City/State/[facility] Co de Phone Number [address] [address] * (ABNORMAL) Lipid Panel (06/22/2025 10:42 AM EST) Cholesterol 173 <200 mg/dL 06/22/2025 5:20 PM [facility] HDL 37(L) >=40 mg/dL 06/22/2025 5:20 PM [facility] Calculated LDL 104 <130 mg/dL 06/22/2025 5:20 PM [facility] Comment:LDL is calculated us ing the Mcclain-NIH equation (TELLO Cardiol. 2019November 13;5(5):540-548). Non-HDL Cholesterol 136 mg/dL 06/22/2025 5:20 PM [facility] Comment:Guidelines suggest a non-HDL cholesterol goal 30 mg/dL higher than the patient-specific LDL cholesterol goal. Cardiac Risk Ratio 4.7 0.0 - 5.0 2024 5:20 PM [facility] Triglycerides 180(H) <=150 mg/dL 06/22/2025 5:20 PM [facility] Blood (Blood) Venipuncture / Unknown 06/22/2025 10:42 AM EST 06/22/2025 10:42 AM EST us Laith Alford DO LAB BLOOD BKR ORDERABLES Final Result [address] [address] * XR CHEST PA AND LATERAL 2 VIEWS (06/22/2025 10:27 AM EST) Anatomical Region Laterality Modality Chest Computed Radiogr aphy 06/22/2025 11:2 5 AM EST Impressions 06/22/2025 11:28 AM EST 1. No acute abnormality. 2. Age-indeterminate mild compression deformity a vertebral body. Narrative 06/22/2025 11:28 AM EST XR CHEST PA AND LATERAL 2 VIEWS Referring clinician's provided indication for this examination in [facility]: Dyspnea on exertion COMPARISON: None FINDINGS: Devices/Tubes/Lines: None. Lungs: The lungs are clear. No focal consolidation or pulmonary edema. Pleura: No pleural effusion or pneumothorax. Heart/Mediastinum: The heart and mediastinum are normal. Bones/Soft Tissues: Osseous degenerative changes. Mild compression deformity of a lower thoracic/upper lumbar vertebral body. Procedure Note Gagan Almanza DO, MPH - 06/22/2025 XR CHEST PA AND LATERAL 2 VIEWS Referring clinician's provided indication for this examination in [facility]:Dyspnea on exertion COMPARISON: None FINDINGS: Devices/Tubes/Lines: None. Lungs: The lungs are clear. No focal consolidation or pulmonary edema. Pleura: No pleural effusion or pneumothorax. Heart/Mediastinum: The heart and mediastinum are normal. Bones/Soft Tissues: Osseous degenerative changes. Mild compressiondeformity of a lower thoracic/upper lumbar vertebral body. IMPRESSION: 1. No acute abnormality. 2. Age-indeterminate mild compression deformity a vertebral body. us Laith Alford DO IMG XR CHEST Final Result * Outside Lab (04/21/2025 2:04 PM EDT) Result [facility] MD LAB BLOOD BKR ORDERABLES Edited Result - Final * (ABNORMAL) Outside Triglycerides (04/21/2025) Triglycerides - External 157(A) 35 - 150 mg/dL Result [facility] MD LAB BLOOD ORDERABLES Annette l Result * Outside Potassium Level (04/21/2025) Pathologist [facility] Potassium level - External 4.1 3.4 - 5.0 mmol/L Result [facility] MD LAB BLOOD ORDERABLES Annette l Result * Outside HbA1c (04/21/2025) Pathologist [facility] Hemoglobin A1c - External 6.5 % Result [facility] MD LAB BLOOD ORDERABLES Annette l Result * Outside LDL (04/21/2025) LDL - External 89 50 - 250 mg/dL Result [facility] MD LAB BLOOD ORDERABLES Annette l Result * (ABNORMAL) Outside Glucose,Fasting (04/21/2025) Glucose, fasting - External 136(A) 65 - 99 mg/dL Result [facility] MD LAB BLOOD ORDERABLES Annette l Result * Outside Serum Creatinine Level (04/21/2025) Pathologist [facility] Creatinine, serum - External 0.96 0.8 - 1.3 mg/dL Result [facility] MD LAB BLOOD ORDERABLES Annette l Result * Outside ALT Level (04/21/2025) Pathologist [facility] ALT - External 13 5 - 30 U/L Result [facility] MD LAB BLOOD ORDERABLES Annette l Result * Outside Total Cholesterol (04/21/2025) Cholesterol, total - External 157 <=200 mg/dL Result [facility] MD LAB BLOOD ORDERABLES Annette l Result * (ABNORMAL) Outside Alkaline Phosphatase Level (04/21/2025) ALKALINE PHOSPHATE LEVEL - EXTERNAL 105(A) 50 - 100 U/L Result [facility] Provider LAB BLOOD ORDERABLES Annette l Result * (ABNORMAL) Outside HDL (04/21/2025) HDL - External 37(A) 40 - 80 mg/dL Result [facility] Provider LAB BLOOD ORDERABLES Annette l Result * XR FOOT 3 OR MORE VIEWS (RIGHT) (04/16/2025 8:28 AM EDT) Narrative SYSTEMGENERATED, DOCUMENTATION - 04/16/2025 8:28 AM EDT This image report has been auto-finalized and has not been read by a Radiologist. Interpretation has been included in the provider encounter note for this date of service. Result [facility] David Toure PA-C IMG XR LOWER EXTREMITY Final Result * DEXA SCAN (12/09/2024 9:39 AM EDT) Result [facility] Provider HEALTH MAINTENANCE Edited Result - Final * DIABETES EYE EXAM FOR RESULT ENTRY ONLY (10/01/2024 11:28 AM EDT) Result [facility] Provider HEALTH MAINTENANCE Final Result from Last 3 Months or Most Recently Relevant to Health Maintenance Insurance MEDICARE PART A & [facility] MEDICARE SUPPLEMENT MEDICARE PART A & B [facility] MEDICARE SUPPLEMENT MEDICARE PART A & B Member Subscriber Plan / Payer (Ef fective 2011-Present) Name:Fabiola Canales Member ID:[id number] Relation to Subscriber:Self Name:Fabiola Canales Subscriber ID:[id number] Payer ID:[id number] Group ID:Not on file Type:Medicare Address: [employer] [address] [place] [phone] [facility] MEDICARE SUPPLEMENT MEDICARE PART A & B Member Subscriber Plan / Payer ( fective 2011-Present) Name:ParkerFabiola Member ID:[id number] Relation to Subscriber:Self Name:Fabiola Canales Subscriber ID:[id number] Payer ID:[id number] Group ID:Not on file Type:Medicare Address: [place] [address] [place] [id number] [facility] MEDICARE SUPPLEMENT MEDICARE PART A & B Location Labs MEDICARE SUPPLEMENT MEDICARE PART A & B Location Labs MEDICARE SUPPLEMENT MEDICARE PART A & B [employer] MEDICARE SUPPLEMENT MEDICARE PART A & B [id number] MEDICARE SUPPLEMENT MEDICARE PART A & B [facility] [employer] MEDICARE SUPPLEMENT Care Teams Shipping Support Relationship Specialty Start Date End Date Laith Alford DO [address] [place] [id number] [email or web address] PCP - General Family Medicine 05/03/23 Additional Source Comments The information contained in this document represents components of the legal health record. It is not the complete legal health record.[facility]
== END 2025-07-15 08:23 | disposition home or self-care (01) ==
LOC: HO.MAMMO 08:22
PROVIDERS: PCP Family Medicine; Visit Provider Family Medicine
DX: Z12.31 Encounter for screening mammogram for malignant neoplasm of breast (principal)
CPT/HCPCS: 77063; 77067

== ENCOUNTER → 2025-07-15 08:45 | Outpatient (BNV) | payer MEDICARE, OTHER, SELFPAY | PROVIDERS: PCP Family Medicine; Visit Provider Internal Medicine | DX: Z12.31 Encounter for screening mammogram for malignant neoplasm of breast (principal) | CPT/HCPCS: 77063; 77067 ==